=== PATIENT | male | born 1985 | race African-American/Black ===

== ENCOUNTER 2019-05-26 20:38 | Inpatient (IN) ==
[2019-05-26] MEDS ORDERED: DUONEB (A & A) INH ONE (21:26)
[2019-05-26] MEDS ORDERED: ALBUTEROL NEB INH ONE (21:26)
[2019-05-26] MEDS ORDERED: SOLU-MEDROL IV ONE (21:33)
--- NOTE | 2019-05-26 21:53 | Diag Imaging Result Doc PS360 ---
EXAM: CHEST-2 VIEWS - 05/26/2019 HISTORY: dyspnea TECHNIQUE: Chest two views COMPARISON: 05/24/2018 FINDINGS: There are substantial thoracic dextroscoliosis. Inspiration on the lateral view is shallow. There is substantial elevation of the left hemidiaphragm similar to prior. The lungs appear grossly clear. There is no substantial vascular congestion, pleural effusion, or pneumothorax identified. IMPRESSION: Substantial thoracic dextroscoliosis. Substantial elevation left hemidiaphragm similar to prior. No discrete evidence of acute disease. Electronically signed by Jc Styles 05/26/2019 9:50 PM
--- NOTE | 2019-05-26 22:15 | PROVIDER DOCUMENTATION ---
HPI-General Adult - General Chief Complaint: Shortness of Breath Stated Complaint: sob Time Seen by Provider: 05/26/19 20:54 Source: patient Allergies/Adverse Reactions: Patient Allergies Allergy/AdvReac Type Severity Reaction Status Date / Time No Known Allergies Allergy Verified 07/02/13 17:48 Home Medications: Home Medication List Medication Instructions Recorded Confirmed Last Taken Type Cetirizine HCl 10 mg PO HS 07/02/13 05/26/19 07/01/13 20:00 History Montelukast [Singulair] 10 mg PO QHS 07/02/13 05/26/19 07/01/13 20:00 History Olanzapine [Zyprexa] 2.5 mg PO BID 07/02/13 05/26/19 07/02/13 08:00 History Sertraline [Zoloft] 50 mg PO QHS 07/02/13 05/26/19 07/01/13 20:00 History Tramadol HCl 50 mg PO Q6H PRN PRN 07/02/13 05/26/19 07/02/13 08:00 History Cholecalciferol (Vit D3) [Vitamin 1 tab PO DAILY 05/26/19 05/26/19 Unknown History D3] Iron,Carbonyl/Ascorbic Acid [Fe C 1 tab PO TID 05/26/19 05/26/19 Unknown History Tablet] Mupirocin Ointment [Bactroban 1 dose TOP BID 05/26/19 05/26/19 Unknown History Ointment] Simvastatin 20 mg PO DAILY 05/26/19 05/26/19 Unknown History Ziprasidone HCl 20 mg PO BID 05/26/19 05/26/19 Unknown History Ziprasidone [Geodon] 20 mg PO BID 05/26/19 05/26/19 Unknown History - History of Present Illness -Gen Adult Nature of Presenting Problems: Patient with a h/o cerebral palsy, intellectual disability, Asthma, seizure, brought from the custodial, reports sudden onset of dyspnea around 5pm today with associated nausea. No chest pain, diaphoresis or vomiting. He has been sedentary due to extremity deformities Location of Pain/Injury: reports: other (sob) Pain Radiation: reports: no radiation Quality of Pain: reports: none Onset/Duration: reports: abrupt Timing: reports: still present Context/Activities at Onset: reports: none Modifying Factors: improves with: nothing Associated Symptoms: reports: nausea Review of Systems - Adult - REVIEW OF SYSTEMS - ADULT Constitutional: reports: no symptoms reported Eyes: reports: no symptoms reported Ears, Nose, Mouth & Throat: reports: no symptoms reported Cardiovascular: reports: see HPI Respiratory: reports: see HPI Gastrointestinal: reports: nausea Genitourinary: reports: no symptoms reported Musculoskeletal: reports: no symptoms reported Integumentary: reports: no symptoms reported Neurological: reports: no symptoms reported Psychiatric: reports: no symptoms reported Endocrine: reports: no symptoms reported Hematologic/Lymphatic: reports: no symptoms reported Allergic/Immunologic: reports: no symptoms reported Past History - Adult - PAST MEDICAL HISTORY-ADULT Review of Records: reports: Nursing Assessment Review, Medications Reviewed, Social history reviewed & non-contributory. Major Childhood Illnesses: reports: other (cerebral palsy) Cardiovascular: reports: hyperlipidemia Respiratory: reports: asthma Gastrointestinal: reports: denies history Genitourinary: reports: denies history Musculoskeletal: reports: other (extremities deformities) Neurological: reports: Seizures/Epilepsy Psychiatric: reports: other (mood disorder, intellectual disability) Endocrine/Immune: reports: denies history - FAMILY HISTORY Family History: reviewed, not pertinent - SOCIAL HISTORY Smoking: denies Substance Use: denies Alcohol Use Frequency: never Living Situation: care facility Physical Exam-General - PHYSICAL EXAM-ADULT Initial Vital Signs Reviewed: Yes - CONSTITUTIONAL General Appearance: alert - EYES Eyes: PERRL/EOMI - HEAD, EARS, NOSE, MOUTH & THROAT HENMT: normocephalic/atraumatic - NECK Neck: non-tender, full range of motion, supple - RESPIRATORY Respiratory: decreased breath sounds (and air entry), wheezing (left upper chest) - CARDIOVASCULAR Cardiovascular: regular rate, rhythm, no edema - GASTROINTESTINAL (ABDOMEN) Abdominal Exam: non tender, soft - MUSCULOSKELETAL Extremity: deformity (flexion b/l wrist and contracture of both lower extremities) - SKIN Integumentary: normal color - NEUROLOGIC Neurologic: hand weaver II-XII nml as tested - PSYCHIATRIC Psych/Mental Status: oriented x 3 Progress - PLAN OF CARE/RESULTS Progress/Plan/Lab Results: Vital Signs - 8 hr 05/26/19 21:11 05/26/19 22:04 Temperature 98.6 F Pulse Rate 132 H 130 H Respiratory Rate 36 H 35 H Blood Pressure 146/100 O2 Sat by Pulse Oximetry 98 96 Orders Category Date Time Status Saline Loc NOW Care 05/26/19 21:29 Active CHEST-2 VIEWS [RAD] Stat Exams 05/26/19 21:29 Completed BLOOD CULTURE [BLDCUL] Stat Lab 05/26/19 21:29 Uncollected CBC WITH DIFF [HEME] Stat Lab 05/26/19 21:29 Uncollected CK PROFILE [SP CHEM] Stat Lab 05/26/19 21:29 Uncollected COMPREHENSIVE METABOLIC PANEL [CHEM] Stat Lab 05/26/19 21:29 Uncollected D-DIMER [COAG] Stat Lab 05/26/19 21:32 Uncollected TROPONIN T Stat Lab 05/26/19 21:29 Uncollected Albuterol 2.5MG/Ipratrop 0.5MG [Duoneb (A & A)] Med 05/26/19 21:26 Discontinued 3 ml INH NOW ONE Albuterol [Albuterol Neb] Med 05/26/19 21:26 Discontinued 2.5 mg INH NOW ONE Methylprednisolone Sod Succ [Solu-Medrol] Med 05/26/19 21:33 Discontinued 125 mg IV NOW ONE Aerosol Treatments Routine Oth 05/26/19 21:31 Completed Aerosol Treatments Stat Oth 05/26/19 21:31 Completed Pulse Oximetry Stat Oth 05/26/19 21:29 Completed EKG [EKG] Stat Ther 05/26/19 21:29 Ordered Result Diagrams: 05/26/19 22:15 05/26/19 22:15 - REASSESSMENT Reassessment #1 Status: unchanged (Had duoneb and solumedrol, Reports mild improvement but still sob. Now having generalised wheezing. Awaiting albuterol neb. Nurse will call R. Therapist) Reassessment #2 Time Reassessed: 12:45 Status: unchanged (Seen 20mins ater albuterol neb, still in mild respiratory distress and wheezing based on lung exam. Still tarchycardia @ 121 to 128 same prior to neb treatment. Will order 10mg albuterol as continous neb over 1 hr.) Reassessment #3 Status: unchanged (Still has wheezing and tarchycardia inspite of continuous albuterol neb. Will admit) - EKG 1 Time of EKG reading by physician:: 21:58 EKG Read and Signed by:: Jaycee Allen Rate: 128 QRS: normal ST Wave: depressed - XRAY 1 XRAY Study: Chest ( EXAM: CHEST-2 VIEWS - 05/26/2019 HISTORY: dyspnea TECHNIQUE: Chest two views COMPARISON: 05/24/2018 FINDINGS: There are substantial thoracic dextroscoliosis. Inspiration on the lateral view is shallow. There is substantial elevation of the left hemidiaphragm similar to prior. The lungs appear grossly clear. There is no substantial vascular congestion, pleural effusion, or pneumothorax identified. IMPRESSION: Subs tantial thoracic dextroscoliosis. Substantial elevation left hemidiaphragm similar to prior. No discrete evidence of acute disease. Electronically signed by Jc Styles 05/26/2019 9:50 PM 05/26/192149 Interpreting Physician: Jc Styles MD Dictated Date/Time: 05/26/192146) - CONSULTS/PCP/HOSPITALIST Notification #1 *Consult/PCP/Hospitalist*: Dr Fournier Time Discussed: 02:18 Consult Disposition: Admit (Accepted admission) Departure - Departure Date of Disposition Decision: 05/27/19 Time of Disposition Decision: 02:19 DIAGNOSIS: Asthma exacerbation Disposition: STILL A PATIENT 30 Certified Medical Emergency: Emergent Condition: Fair - Critical Care Note This patient required my direct & personal management of CC.: No Attestation - Physician/ AIDEN Attestation Patient care was provided by Advanced Practice Provider:: No The physician spent face to face time with patient:: Yes Advanced Practice Provider documentation review:: Supervising physician onsite and consulted in the evaluation and care of this patient. The physician did have a face to face encounter with the patient.
[2019-05-26 22:38] LABS: BASO# 0.03 X1000 (0.0-0.2); BASO% 0.3 % (0.0-0.8); EOS# 0.06 X1000 (0.0-0.7); EOS% 0.6 % (0.0-10.0); HEMOGLOBIN 13.5 g/dL (14.0-18.0); IMM GRAN# 0.05 X1000 (0.0-0.04); IMM GRAN% 0.5 % (0.0-0.5); LYMPH% 13.1 % (20.5-51.1); MCH 28.5 PG (27-31); MCHC 30.7 g/dL (33-37); MONO# 0.87 X1000 (0.11-0.59); MONO% 8.1 % (1.7-9.3); MPV 9.7 FL (7.4-10.4); NEUT# 8.27 X1000 (1.4-6.5); NEUT% 77.4 % (42.2-75.2); PLT 297 X1000 (130-400); RBC 4.73 XMIL (4.7-6.1); RDW 13.5 % (11.5-14.5); WBC 10.68 X1000 (4.8-10.8)
[2019-05-26 23:01] LABS: AGAP 16; ALB/GLOB RATIO 1.5; ALBUMIN 5.1 g/dL (3.5-5.0); ALKALINE PHOSPHATASE 86 U/L (32-122); BUN 6 mg/dL (8-22); CALCIUM 9.9 mg/dL (8.8-10.2); CHLORIDE 97 mmol/L (98-107); COSMO 280; CREATININE 0.5 mg/dL (0.7-1.2); ESTIMATED GFR > 60; GLUCOSE 116 mg/dL (70-104); GOT 30 U/L (10-34); GPT 42 U/L (10-44); POTASSIUM 4.4 mmol/L (3.5-5.1); SODIUM 141 mmol/L (136-145); TCO2 28 mmol/L (25-35); TOTAL BILIRUBIN 0.22 mg/dL (0.20-1.00); TOTAL PROTEIN 8.5 g/dL (6.3-8.3)
[2019-05-26 23:19] LABS: CK PROFILE 343 U/L (24-204)
[2019-05-26 23:47] LABS: CK INDEX 0.6 (0.0-2.5); CK-MB 1.91 ng/mL (0.0-5.0)
--- NOTE | 2019-05-27 00:15 | EKG Report ---
Test Performed on : 05/26/2019 9:52:42 PM Test Reason : dyspnea Blood Pressure : / mmHG Vent. Rate : 128 BPM Atrial Rate : 131 BPM P-R Int : 144 ms QRS Dur : 088 ms QT Int : 404 ms P-R-T Axes : 062 076 012 degrees QTc Int : 589 ms Sinus tachycardia. Septal infarct , age undetermined T wave abnormality, consider inferior ischemia Abnormal ECG No previous ECGs available Unconfirmed Result
[2019-05-27] MEDS ORDERED: ALBUTEROL NEB INH ONE (00:42)
[2019-05-27] MEDS ORDERED: ULTRAM PO PRN (02:40)
[2019-05-27] MEDS: ROCEPHIN 1 GM in NS 50 ML IV SCH (04:45)
[2019-05-27] MEDS: NS 1,000 ML IV SCH ×2 (04:45→21:40)
[2019-05-27] MEDS: SOLU-MEDROL IV SCH ×3 (05:09→21:41)
[2019-05-27] MEDS: ALBUTEROL NEB INH SCH ×4 (06:05→22:36)
--- NOTE | 2019-05-27 06:15 | HISTORY AND PHYSICAL ---
CHIEF COMPLAINT: Shortness of breath. HISTORY OF PRESENT ILLNESS: Mr. Eckert is a 33-year-old male who has cerebral palsy. He is also known to have asthma or COPD. He has intellectual disability secondary to the cerebral palsy, previous seizures. He was brought in from the snf with sudden dyspnea around 5 p.m. last night. He had associated nausea. No chest pain, diaphoresis or vomiting. On exam, he was still having wheezing after several breathing treatments and was tachycardic. His chest x-ray was unremarkable. The patient appears to have had an asthma or COPD exacerbation. He will be admitted for further evaluation and treatment. PAST MEDICAL HISTORY: See HPI. PREVIOUS SURGICAL HISTORY: Denies. SOCIAL HISTORY: Lives at a snf. No alcohol, tobacco or illicit drugs. FAMILY HISTORY: Patient denies having any family history he is aware of. ALLERGIES: No known drug allergies. HOME MEDICATIONS: Geodon 20 mg p.o. b.i.d., cetirizine 10 mg p.o. at bedtime, vitamin D3 of 1000 units p.o. daily, iron with vitamin C 1 tablet p.o. t.i.d., Singulair 10 mg p.o. at bedtime, Bactroban topically, Zyprexa 2.5 mg p.o. b.i.d., sertraline 50 mg p.o. at bedtime, simvastatin 20 mg p.o. daily, Ultram 50 mg p.o. q.6 p.r.n. REVIEW OF SYSTEMS: Fourteen point review of systems conducted with the patient. He endorses shortness of breath and nausea. Denies other complaints. All other pertinent positives are listed above in the HPI. All other systems reviewed and negative. PHYSICAL EXAMINATION: VITAL SIGNS: Temperature 99.1, pulse 124, respirations 28, blood pressure 145/101, oxygen saturation 97% on 2 L nasal cannula. GENERAL: A 33-year-old male with cerebral palsy lying in the ER stretcher. He has contracted bilateral upper and lower extremities. He is alert and oriented times 3. He does not speak very much verbally. He is in no acute distress. HEENT: Head is atraumatic, normocephalic. Pupils equal, round, reactive to light. Extraocular eye movement is intact. Sclera is anicteric. Conjunctiva is pink. Oral mucosa is mildly dry. NECK: Short and thick. No JVD. No thyromegaly. Trachea is midline. No cervical lymphadenopathy. CARDIAC: S1, S2 appreciated. Tachycardic. No murmurs, gallops or rubs. LUNGS: Expiratory wheezing diminished bilaterally. No rhonchi or rales. Symmetric rise and fall with respirations. ABDOMEN: Soft, nondistended, nontender. Bowel sounds present all 4 quadrants, normoactive. EXTREMITIES: Bilateral upper and lower extremities are contracted. One-plus pedal pulses bilaterally. GENITOURINARY: No bladder distention. Patient voids. Otherwise deferred. NEUROLOGICAL: Patient has intellectual deficit. However, he is alert and oriented times 3. Patient is contractured but cranial nerves 2 through 12 otherwise seem grossly intact. DIAGNOSTIC DATA: Chest x-ray: Substantial elevation of the left hemidiaphragm. LABORATORY DATA: CBC within normal limits. D-dimer within normal limits. Chloride 97. BUN 6. Creatinine 0.5. Glucose 116. ASSESSMENT AND PLAN: 1. Asthma or chronic obstructive pulmonary disease exacerbation. Give steroids, DuoNebs and Rocephin 1 g. 2. Cerebral palsy with agitation at times. We will continue home medication. 3. Hyperglycemia. I am unaware of the patient having diabetes. Check hemoglobin A1c. 4. Hyperlipidemia. Continue statin. Further recommendations per patient clinical course. Dictated by LORI eCja for Mark Fournier MD I have performed a face to face diagnostic evaluation. Labs/Xrays- reviewed. Exam- Chest- scattered wheezes, CV- regular. A/P- Cerebral palsy, COPD exacerbation- Admit, duo nebs, empiric abx. Dr. Fournier cc: LORI Ceja MD [facility]
[2019-05-27 08:10] LABS: HEMOGLOBIN A1C 6.1 % (4.8-6.0)
[2019-05-27] MEDS: ZOCOR PO SCH (09:31)
[2019-05-27] MEDS: VITAMIN D PO SCH (09:31)
[2019-05-27] MEDS: ZYPREXA PO SCH ×2 (09:31→20:43)
[2019-05-27] MEDS: GEODON PO SCH ×2 (09:31→20:44)
[2019-05-27] MEDS: ICAR-C PO SCH ×3 (09:31→17:22)
[2019-05-27] MEDS: BACTROBAN OINTMENT TOP SCH ×2 (09:36→20:47)
--- NOTE | 2019-05-27 11:21 | Diag Imaging Result Doc PS360 ---
EXAM: CT THORAX W/O CONTRAST HISTORY: asp pna suspected TECHNIQUE: CT chest without contrast COMPARISON: None. FINDINGS: There is severe scoliosis. No pleural effusions. No cardiomegaly. No aortic aneurysm. There are small mediastinal nodes. There is a small amount of atelectasis in the lower lungs. The left hemidiaphragm is elevated. No consolidation. No bronchiectasis. IMPRESSION: There is atelectasis, but no definite pneumonia. This exam was performed using automated exposure control, adjustment of mA or kV according to patient size, and/or use of iterative reconstruction technique. Electronically signed by Misael Mckinley 05/27/2019 11:19 AM
[2019-05-27] MEDS: SINGULAIR PO SCH (20:44)
[2019-05-27] MEDS: ZYRTEC PO SCH (20:44)
[2019-05-27] MEDS: ZOLOFT PO SCH (20:44)
[2019-05-28] MEDS: NS 1,000 ML IV SCH ×2 (01:45→21:26)
[2019-05-28] MEDS: ALBUTEROL NEB INH SCH ×4 (03:46→23:14)
[2019-05-28] MEDS: ROCEPHIN 1 GM in NS 50 ML IV SCH (03:54)
[2019-05-28] MEDS: GEODON PO SCH ×2 (09:27→21:04)
[2019-05-28] MEDS: VITAMIN D PO SCH (09:27)
[2019-05-28] MEDS: ZOCOR PO SCH (09:27)
[2019-05-28] MEDS: ICAR-C PO SCH ×3 (09:27→17:33)
[2019-05-28] MEDS: ZYPREXA PO SCH ×2 (09:27→21:04)
[2019-05-28] MEDS: SOLU-MEDROL IV SCH ×2 (09:27→17:33)
[2019-05-28] MEDS: BACTROBAN OINTMENT TOP SCH (09:29)
[2019-05-28 09:37] LABS: BASO# 0.01 X1000 (0.0-0.2); BASO% 0.1 % (0.0-0.8); HEMATOCRIT 43.5 % (42.0-52.0); HEMOGLOBIN 13.2 g/dL (14.0-18.0); IMM GRAN# 0.04 X1000 (0.0-0.04); IMM GRAN% 0.6 % (0.0-0.5); LYMPH# 1.06 X1000 (1.2-3.4); LYMPH% 15.2 % (20.5-51.1); MCH 29.5 PG (27-31); MCHC 30.3 g/dL (33-37); MCV 97.1 FL (81-99); MONO# 0.99 X1000 (0.11-0.59); MONO% 14.2 % (1.7-9.3); MPV 9.7 FL (7.4-10.4); NEUT# 4.87 X1000 (1.4-6.5); NEUT% 69.9 % (42.2-75.2); PLT 285 X1000 (130-400); RBC 4.48 XMIL (4.7-6.1); RDW 13.8 % (11.5-14.5); WBC 6.97 X1000 (4.8-10.8)
[2019-05-28 10:02] LABS: AGAP 17; BUN 8 mg/dL (8-22); CALCIUM 9.4 mg/dL (8.8-10.2); CHLORIDE 99 mmol/L (98-107); COSMO 286; CREATININE 0.5 mg/dL (0.7-1.2); ESTIMATED GFR > 60; GLUCOSE 239 mg/dL (70-104); POTASSIUM 3.9 mmol/L (3.5-5.1); SODIUM 140 mmol/L (136-145); TCO2 24 mmol/L (25-35)
--- NOTE | 2019-05-28 10:22 | PROGRESS NOTE ---
DATE: 05/28/2019 SUBJECTIVE: Patient is starting tomorrow a detention. Staff reports that he is still coughing a lot. OBJECTIVE: Vital Signs: Temperature 98.4 degrees, heart rate 106, respiratory rate 18, blood pressure 153/92, O2 saturation 92% 4 L nasal cannula. General examination: This is a 33-year- old, male, with past medical history of cerebral palsy lying in bed, in no acute distress. Cardiovascular exam: S1, S2 heard. No murmurs, gallops, or rubs. Regular rate and rhythm. Respiratory exam: Coarse breath sounds. Expiratory wheezing noted all over both pulmonary bases. The patient is not using accessory muscles or having work of breathing. Abdomen: Soft. Nontender to palpation. Bowel sounds present. No organomegaly. Extremities: No clubbing, cyanosis or edema. Peripheral pulses present in both legs. Neurological exam: Patient is alert and oriented x3. Moves 4 extremities. LABORATORY DATA: Reviewed. ASSESSMENT AND PLAN: 1. Acute respiratory failure secondary to asthma exacerbation. At admission, patient had not been given any steroid, so will provide Solu-Medrol 40 mg intravenously every 8 hours and ceftriaxone as well. We will change frequency of breathing treatments from q. 6 hours to q. 4 hours and see how he does. 2. Cerebral palsy with agitation at times. Patient is stable. We will continue to monitor. 3. Hyperlipidemia. We will continue with statins. 4. Disposition: I think this patient is stable. He will definitely need at least two more days in the hospital. We will transfer this patient out of the PVC unit today. cc: Mumtaz Wills MD
[2019-05-28] MEDS: ZYRTEC PO SCH (21:04)
[2019-05-28] MEDS: ZOLOFT PO SCH (21:04)
[2019-05-28] MEDS: SINGULAIR PO SCH (21:05)
[2019-05-29] MEDS: SOLU-MEDROL IV SCH ×4 (01:33→23:02)
[2019-05-29] MEDS: BACTROBAN OINTMENT TOP SCH ×3 (01:34→23:02)
[2019-05-29] MEDS: ALBUTEROL NEB INH SCH ×4 (03:12→22:08)
[2019-05-29] MEDS: ROCEPHIN 1 GM in NS 50 ML IV SCH (03:43)
[2019-05-29 07:15] LABS: HEMATOCRIT 42.8 % (42.0-52.0); IMM GRAN# 0.03 X1000 (0.0-0.04); IMM GRAN% 0.4 % (0.0-0.5); LYMPH# 1.09 X1000 (1.2-3.4); LYMPH% 13.8 % (20.5-51.1); MCH 28.8 PG (27-31); MCHC 30.4 g/dL (33-37); MCV 94.9 FL (81-99); MONO# 0.56 X1000 (0.11-0.59); MONO% 7.1 % (1.7-9.3); MPV 9.5 FL (7.4-10.4); NEUT# 6.24 X1000 (1.4-6.5); NEUT% 78.7 % (42.2-75.2); PLT 310 X1000 (130-400); RBC 4.51 XMIL (4.7-6.1); RDW 13.7 % (11.5-14.5); WBC 7.92 X1000 (4.8-10.8)
[2019-05-29 07:41] LABS: AGAP 13; BUN 10 mg/dL (8-22); CALCIUM 9.4 mg/dL (8.8-10.2); CHLORIDE 101 mmol/L (98-107); COSMO 290; CREATININE 0.4 mg/dL (0.7-1.2); ESTIMATED GFR > 60; GLUCOSE 165 mg/dL (70-104); POTASSIUM 4.1 mmol/L (3.5-5.1); SODIUM 144 mmol/L (136-145); TCO2 30 mmol/L (25-35)
[2019-05-29] MEDS: ZYPREXA PO SCH ×2 (09:54→22:57)
[2019-05-29] MEDS: ZOCOR PO SCH (09:54)
[2019-05-29] MEDS: GEODON PO SCH ×2 (09:55→22:57)
[2019-05-29] MEDS: VITAMIN D PO SCH (09:55)
[2019-05-29] MEDS: ICAR-C PO SCH ×3 (09:55→16:31)
[2019-05-29] MEDS: NS 1,000 ML IV SCH (13:42)
--- NOTE | 2019-05-29 18:46 | PROGRESS NOTE ---
DATE: 05/29/2019 SUBJECTIVE: Patient has no major complaints. His breathing is stable. There is no custodial person at this time to ask how he is doing. OBJECTIVE: Vital Signs: Blood pressure 124/87, heart rate 85, respiratory rate 21, temperature 98.1 degrees, 100% on 4 L. Cardiovascular: Regular rate and rhythm. Pulmonary: He has occasional rhonchi and wheezing. GI: Soft, nontender, nondistended. Bowel sounds were positive. LABORATORY DATA: White count 7, hemoglobin and hematocrit 13 and 42, platelets of 310,000. Basic was normal. Chest x-ray was likely normal. PROBLEM LIST: 1. Asthma exacerbation. Will continue breathing treatments. He seems to be doing okay. 2. Cerebral palsy is stable currently on current medications. DISPOSITION: I think he is probably getting close to being transferred to the floor. Will continue to follow. cc: Morgan Watkins MD
[2019-05-29] MEDS: SINGULAIR PO SCH (22:57)
[2019-05-29] MEDS: ZYRTEC PO SCH (22:57)
[2019-05-29] MEDS: ZOLOFT PO SCH (22:57)
[2019-05-30] MEDS: ALBUTEROL NEB INH SCH ×3 (03:40→15:26)
[2019-05-30] MEDS: ROCEPHIN 1 GM in NS 50 ML IV SCH (04:12)
[2019-05-30 07:20] LABS: HEMATOCRIT 41.8 % (42.0-52.0); HEMOGLOBIN 12.8 g/dL (14.0-18.0); IMM GRAN# 0.02 X1000 (0.0-0.04); IMM GRAN% 0.2 % (0.0-0.5); LYMPH# 0.86 X1000 (1.2-3.4); MCHC 30.6 g/dL (33-37); MCV 94.6 FL (81-99); MONO# 0.79 X1000 (0.11-0.59); MONO% 9.2 % (1.7-9.3); MPV 9.4 FL (7.4-10.4); NEUT# 6.93 X1000 (1.4-6.5); NEUT% 80.6 % (42.2-75.2); PLT 315 X1000 (130-400); RBC 4.42 XMIL (4.7-6.1); RDW 13.4 % (11.5-14.5)
[2019-05-30 07:33] LABS: AGAP 8; BUN 10 mg/dL (8-22); CALCIUM 9.1 mg/dL (8.8-10.2); CHLORIDE 96 mmol/L (98-107); COSMO 276; CREATININE 0.4 mg/dL (0.7-1.2); ESTIMATED GFR > 60; GLUCOSE 150 mg/dL (70-104); POTASSIUM 3.8 mmol/L (3.5-5.1); SODIUM 137 mmol/L (136-145); TCO2 33 mmol/L (25-35)
[2019-05-30] MEDS: VITAMIN D PO SCH (09:58)
[2019-05-30] MEDS: GEODON PO SCH ×3 (09:58→21:56)
[2019-05-30] MEDS: ZOCOR PO SCH (09:58)
[2019-05-30] MEDS: ZYPREXA PO SCH ×2 (09:58→21:57)
[2019-05-30] MEDS: ICAR-C PO SCH ×3 (09:58→18:56)
[2019-05-30] MEDS: SOLU-MEDROL IV SCH ×2 (09:58→20:54)
[2019-05-30] MEDS: BACTROBAN OINTMENT TOP SCH ×2 (09:59→22:00)
[2019-05-30] MEDS ORDERED: NS NEB INH SCH (18:00)
--- NOTE | 2019-05-30 19:23 | PROGRESS NOTE ---
DATE: 05/30/2019 SUBJECTIVE: His breathing is better. I feel like the wheezing is better. OBJECTIVE: Vital signs: Blood pressure 149/97, heart rate went up to 128, a big jump, but it has done that before. We may need to drop him down his Xopenex, but his breathing looked better and he had less secretions noted in upper airway noise. Cardiovascular: Regular rate and rhythm. Pulmonary: No wheezes. GI: Soft, nontender, and nondistended. Bowel sounds were positive. LABORATORY DATA: White count is 8, hemoglobin and hematocrit 12 and 41, platelets of 315,000. Basic was normal. PROBLEM LIST: 1. Acute asthma exacerbation. Will continue breathing treatments. He is on a little bit of steroids. I do not think I am going to knock them down further. 2. Rocephin. 3. Intellectual impairment related to cerebral palsy. Seems to be stable. DISPOSITION: Anticipate probable discharge tomorrow, if stable. cc: Morgan Watkins MD
[2019-05-30] MEDS ORDERED: SOLU-MEDROL 0 MG in NS 100 ML IV ONE (19:41)
[2019-05-30] MEDS ORDERED: OFIRMEV 1000 MG/ISOTONIC SOLN 1,000 MG/100 ML BOTTLE IV ONE (19:46)
[2019-05-30 19:49] LABS: ALLEN TEST YES; BE 7.7 mmoll (-3.0-3.0); BLOOD TYPE ARTERIAL; HCO3-(ACT) 30.9 mmoll (20.0-26.0); METHB 1.4 % (0.0-1.5); O2(CT) 20.2 mL/dL (15.0-23.0); O2HB 96.7 % (95.0-99.0); PCO2(98.6) 49 mmHg (35-45); PO2(98.6) 361 mmHg (60-100); SAMPLE BLOOD; SAO2 99.8 % (95.0-100.0); THB 14.2 g/dL (11.5-17.4); pH(98.6) 7.44 (7.35-7.45)
[2019-05-30 19:50] LABS: MODALITY NRB
[2019-05-30] MEDS ORDERED: SOLU-MEDROL ONE (19:52)
[2019-05-30] MEDS ORDERED: BROVANA NEB INH ONE (20:08)
[2019-05-30] MEDS ORDERED: LASIX IV ONE ×2 (20:08→23:55)
--- NOTE | 2019-05-30 20:27 | Diag Imaging Result Doc PS360 ---
EXAM: CHEST-PORTABLE INDICATION: sob TECHNIQUE: One view COMPARISON: 05/26/2019 FINDINGS: Severe dextroscoliosis is again noted. There is stable chronic elevation of the left hemidiaphragm. The lungs are grossly clear. There is no discrete pleural fluid collection or pneumothorax. The cardiomediastinal silhouette and central vasculature are grossly unremarkable. IMPRESSION: Stable chest with no definite acute pathology by plain radiograph. Electronically signed by Alexis Carnes 05/30/2019 8:25 PM
[2019-05-30 21:26] LABS: ALLEN TEST YES; BE 7.4 mmoll (-3.0-3.0); BLOOD TYPE ARTERIAL; HCO3-(ACT) 30.7 mmoll (20.0-26.0); METHB 1.3 % (0.0-1.5); O2(CT) 19.6 mL/dL (15.0-23.0); O2HB 96.1 % (95.0-99.0); PCO2(98.6) 50 mmHg (35-45); PO2(98.6) 103 mmHg (60-100); SAMPLE BLOOD; THB 14.4 g/dL (11.5-17.4); pH(98.6) 7.43 (7.35-7.45)
[2019-05-30 21:29] LABS: MODALITY BI PAP
[2019-05-30] MEDS: XOPENEX NEB INH SCH (21:30)
[2019-05-30] MEDS: ATROVENT NEB INH SCH (21:30)
[2019-05-30] MEDS: SINGULAIR PO SCH (21:56)
[2019-05-30] MEDS: ZOLOFT PO SCH (21:57)
[2019-05-30] MEDS: ZYRTEC PO SCH (21:57)
[2019-05-30 21:58] LABS: URINE SOURCE CATH
[2019-05-30 22:28] LABS: BILIRUBIN URINE NEGATIVE (NEGATIVE); BLOOD URINE TRACE (NEGATIVE); COLOR YELLOW; GLUCOSE URINE NEGATIVE (NEGATIVE); KETONE URINE NEGATIVE (NEGATIVE); LEUKOCYTES URINE NEGATIVE (NEGATIVE); NITRITE URINE NEGATIVE (NEGATIVE); PROTEIN URINE NEGATIVE (NEGATIVE); SP GRAVITY URINE 1.016; TURBIDITY URINE HAZY (CLEAR); UROBILINOGEN URINE NORMAL (NORMAL)
[2019-05-30 22:29] LABS: UR EPITHELIAL CELLS >10 /HPF (<10); URINE BACTERIA NEGATIVE /HPF; URINE RBC <10 /HPF (<10); URINE WBC <10 /HPF (<10)
[2019-05-30 22:38] LABS: URINE CRYSTALS NONE SEEN; URINE SMALL ROUND CELLS NONE SEEN; URINE YEAST NONE SEEN
[2019-05-30 22:39] LABS: URINE CASTS WHITE CELL PRESENT
[2019-05-31] MEDS: SOLU-MEDROL IV SCH ×4 (01:15→20:13)
[2019-05-31] MEDS: BROVANA NEB INH SCH ×3 (03:23→22:55)
[2019-05-31] MEDS: ATROVENT NEB INH SCH ×4 (03:25→22:55)
[2019-05-31] MEDS: ROCEPHIN 1 GM in NS 50 ML IV SCH (03:59)
--- NOTE | 2019-05-31 07:47 | PULMONOLOGY CONSULTATION ---
DATE: 05/30/2019 REQUESTING CLINICIAN: Dr. Watkins. REASON FOR CONSULTATION: Intubation (patient is not intubated). HISTORY OF PRESENT ILLNESS: Mr. Eckert is a 33-year-old black male with a history of cerebral palsy, intellectual limitations, seizures, and asthma, who was brought to the emergency room with increasing shortness of breath. The patient is a poor historian. He reports he has had asthma for "a long time". alf medicines not available for review. His medicines from recent pharmacies reveal Singulair, Zyprexa, Zoloft, simvastatin, Geodon, and tramadol. No asthma medicines are listed. The patient does not know why he came to the hospital. PAST MEDICAL HISTORY: 1. Cerebral palsy with intellectual disability. 2. Multiple contractions. 3. Severe kyphoscoliosis (one echocardiogram suggests dextrocardia). 4. Asthma. 5. Seizure disorder. SOCIAL HISTORY: He lives in a senior living. No alcohol or tobacco use listed. FAMILY HISTORY: Not available. REVIEW OF SYSTEMS: As noted in the HPI. PHYSICAL EXAMINATION: General: Reveals a bed-bound, chronically ill-appearing male with mild work of breathing. Blood pressure 148/98, heart rate 92, respiratory rate 28, oxygen saturation 100%. HEENT: Pupils are equal and reactive. Oropharynx is clear. Neck: Supple. Chest: Reveals diffuse wheezing bilaterally. Cardiac: S1, S2. Abdomen: Soft. Extremities: Contracted with chronic muscle loss and edema. IMAGING: CT scan of the thorax reveals severe scoliosis with a small amount of atelectasis in the lung bases and elevation of the left hemidiaphragm. LABORATORY DATA: White blood count 8.6, hemoglobin 12.8, platelet count 315,000. Arterial blood gas reveals a pH of 7.43, pCO2 of 50, PO2 of 103 on BiPAP with a normal lactate. IMPRESSION: A 33-year-old with: 1. Acute hypoxemic respiratory failure. 2. Asthma exacerbation. 3. Chronic hypercapnic respiratory failure. 4. Severe scoliosis likely leading to hypercapnic respiratory failure. 5. Fevers. RECOMMENDATIONS: 1. Agree with transfer to the ICU. 2. Attempt BiPAP. 3. Continue current antibiotic and steroid regimen. 4. Small diuretic trial. cc: Shantanu Rushing MD
[2019-05-31] MEDS: VITAMIN D PO SCH (08:45)
[2019-05-31] MEDS: GEODON PO SCH ×3 (08:45→20:13)
[2019-05-31] MEDS: ZOCOR PO SCH (08:45)
[2019-05-31] MEDS: ZYPREXA PO SCH ×2 (08:45→20:13)
[2019-05-31] MEDS: ICAR-C PO SCH ×3 (08:45→16:26)
[2019-05-31] MEDS: BACTROBAN OINTMENT TOP SCH ×2 (09:24→20:14)
[2019-05-31 09:40] LABS: ALLEN TEST YES; BLOOD TYPE ARTERIAL; HCO3-(ACT) 34.2 mmoll (20.0-26.0); METHB 1.1 % (0.0-1.5); O2(CT) 19.3 mL/dL (15.0-23.0); O2HB 95.3 % (95.0-99.0); PCO2(98.6) 49 mmHg (35-45); PO2(98.6) 83 mmHg (60-100); SAMPLE BLOOD; SAO2 98.1 % (95.0-100.0); THB 14.4 g/dL (11.5-17.4); pH(98.6) 7.49 (7.35-7.45)
[2019-05-31 09:43] LABS: MODALITY CANNULA
--- NOTE | 2019-05-31 09:49 | Diag Imaging Result Doc PS360 ---
EXAM: CHEST-PORTABLE 05/31/2019 HISTORY: resp failure TECHNIQUE: AP portable supine at 0936 COMMENT: There is a large hiatal hernia. There is marked rotoscoliosis of the thoracolumbar spine with convexity to the right. Overall the appearance of the chest has not changed significantly since 05/30/2019. IMPRESSION: Stable chest. Electronically signed by Devan Kelly 05/31/2019 9:47 AM
[2019-05-31 10:21] LABS: BASO# 0.01 X1000 (0.0-0.2); BASO% 0.1 % (0.0-0.8); HEMATOCRIT 44.4 % (42.0-52.0); HEMOGLOBIN 13.7 g/dL (14.0-18.0); IMM GRAN# 0.07 X1000 (0.0-0.04); IMM GRAN% 0.7 % (0.0-0.5); LYMPH# 1.02 X1000 (1.2-3.4); LYMPH% 10.5 % (20.5-51.1); MCH 28.7 PG (27-31); MCHC 30.9 g/dL (33-37); MCV 93.1 FL (81-99); MONO# 0.58 X1000 (0.11-0.59); MPV 9.7 FL (7.4-10.4); NEUT# 8.04 X1000 (1.4-6.5); NEUT% 82.7 % (42.2-75.2); PLT 339 X1000 (130-400); RBC 4.77 XMIL (4.7-6.1); RDW 13.6 % (11.5-14.5); WBC 9.72 X1000 (4.8-10.8)
[2019-05-31 10:32] LABS: AGAP 16; ALB/GLOB RATIO 1.1; ALBUMIN 4.3 g/dL (3.5-5.0); ALKALINE PHOSPHATASE 65 U/L (32-122); BUN 14 mg/dL (8-22); CALCIUM 9.3 mg/dL (8.8-10.2); CHLORIDE 94 mmol/L (98-107); COSMO 291; CREATININE 0.6 mg/dL (0.7-1.2); ESTIMATED GFR > 60; GLUCOSE 200 mg/dL (70-104); GOT 17 U/L (10-34); GPT 26 U/L (10-44); MAGNESIUM 2.4 mg/dL (1.5-2.7); POTASSIUM 3.4 mmol/L (3.5-5.1); SODIUM 143 mmol/L (136-145); TCO2 33 mmol/L (25-35); TOTAL BILIRUBIN 0.27 mg/dL (0.20-1.00); TOTAL PROTEIN 8.1 g/dL (6.3-8.3)
[2019-05-31] MEDS: XOPENEX NEB INH SCH ×3 (11:31→22:55)
--- NOTE | 2019-05-31 11:57 | PROGRESS NOTE ---
DATE: 05/31/2019 SUBJECTIVE: Patient is nonverbal. Apparently, he is breathing better. He was transferred to the intensive care unit overnight for shortness of breath. Apparently, they were thinking that this patient may need to be intubated. According to nursing staff, he has been fed this morning. He has been on BiPAP on now requiring 3 L of oxygen by nasal cannula. OBJECTIVE: Vital Signs: Temperature 99.3, heart rate 90, respiratory rate 22, blood pressure 153/112, O2 saturation 98% on 3 L nasal cannula. General Examination: This is a chronically ill- appearing, 33-year-old, male with a history of cerebral palsy, lying in bed, in no acute distress. Cardiovascular Examination: S1 and S2 heard. No murmurs, gallops, or rubs. Regular rate and rhythm. Respiratory Examination: Coarse breath sounds all over both pulmonary bases, anteriorly as well. The patient is not using any accessory muscles or having work of breathing. Abdomen: Soft, nontender to palpation, nondistended. Bowel sounds present. No organomegaly. Extremities: Flexed, all 4 extremities. Neurological Examination: The patient is nonverbal. Awake. Does not follow commands. Laboratory Data: White cell count 8.6, hemoglobin 12.8, hematocrit 41.8, platelets 315,000. ABG shows pH 7.43, with pCO2 of 50, PO2 of 103. Normal BMP. ASSESSMENT AND PLAN: 1. Acute respiratory failure secondary to asthma exacerbation. We will continue with breathing treatments, intravenous steroids. He has been on ceftriaxone since admission. We will continue with the same management. 2. Volume overload. That is the reason why this patient was transferred to the intensive care unit. He has received, so far, Lasix 80 mg intravenously. We will continue with the same management. 3. Intellectually impairment related to cerebral palsy, stable. We will continue to monitor. 4. Hyperlipidemia. We will continue with the statin. 5. Disposition. At this point, we will keep the patient in the intensive care unit to monitor him closely. If tomorrow he is fine, we will send him to a regular floor. cc: Mumtaz Wills MD
[2019-05-31] MEDS: TAMIFLU PO SCH ×2 (14:17→20:13)
[2019-05-31] MEDS: ZOLOFT PO SCH (20:13)
[2019-05-31] MEDS: SINGULAIR PO SCH (20:13)
[2019-05-31] MEDS: ZYRTEC PO SCH (20:13)
[2019-06-01] MEDS: SOLU-MEDROL IV SCH ×4 (02:03→20:31)
[2019-06-01] MEDS: ATROVENT NEB INH SCH ×4 (03:26→21:19)
[2019-06-01] MEDS: ROCEPHIN 1 GM in NS 50 ML IV SCH (03:47)
--- NOTE | 2019-06-01 04:28 | PULMONOLOGY PROGRESS NOTE ---
DATE: 05/31/2019 SUBJECTIVE: The patient is arousable to alert. He appears to be comfortable on BiPAP. OBJECTIVE: Maximum temperature in the last 24 hours is 101.2 degrees, blood pressure 131/83, heart rate 103, respiratory rate 32, and oxygen saturation 97% on BiPAP.HEENT: Pupils are equal and reactive. Oropharynx appears clear. Neck: Supple. Lungs: Chest exam reveals diffuse wheezing bilaterally. Cardiac: S1-S2. Abdomen is soft and obese. Extremities: Reveal trace to 1+ edema. LABORATORIES: Influenza screen has returned positive for influenza B. Arterial blood gas reveals pH 7.49, pCO2 of 49, PO2 of 83 with a lactate of 4.3. White blood count 9.72, hemoglobin 13.4, and platelet count 339,000. Chest x-ray reveals large hiatal hernia without change. IMPRESSION: A 33-year-old with: 1. Influenza B. 2. Acute hypoxemic respiratory failure. 3. Asthma exacerbation. 4. Chronic hypercapnic respiratory failure. 5. Severe scoliosis. 6. Fevers. RECOMMENDATIONS: 1. Initiate Tamiflu 75 mg b.i.d. for the next 5 days. 2. Initiate isolation. 3. Continue BiPAP. 4. Consider weaning antibiotics soon given the positive influenza screen. 5. Continue ICU monitoring. He remains critically ill given his limited ventilatory ability associated with his obesity and kyphoscoliosis. cc: Shantanu Rushing MD
[2019-06-01] MEDS: BROVANA NEB INH SCH ×2 (08:59→21:20)
[2019-06-01] MEDS: XOPENEX NEB INH SCH ×3 (08:59→21:20)
[2019-06-01] MEDS: ZYPREXA PO SCH ×2 (09:56→20:32)
[2019-06-01] MEDS: ICAR-C PO SCH ×3 (09:56→17:38)
[2019-06-01] MEDS: ZOCOR PO SCH (09:56)
[2019-06-01] MEDS: BACTROBAN OINTMENT TOP SCH ×2 (09:57→20:37)
[2019-06-01] MEDS: GEODON PO SCH ×2 (09:57→20:31)
[2019-06-01] MEDS: VITAMIN D PO SCH (09:57)
[2019-06-01] MEDS: TAMIFLU PO SCH ×2 (09:57→20:32)
--- NOTE | 2019-06-01 12:40 | PROGRESS NOTE ---
DATE: 06/01/2019 SUBJECTIVE: Patient is nonverbal. He is requiring now a BiPAP mask. OBJECTIVE: Vital Signs: Temperature 97.6 degrees, heart rate 75, respiratory rate 26, blood pressure 133/86, O2 saturation 93% on BiPAP mask. General examination: This is a chronically ill- appearing, 33-year-old, male with history of seropositive, lying in bed, in no acute distress. Cardiovascular: S1, S2 heard. No murmurs, gallops, or rubs. Regular rate and rhythm. Respiratory: Coarse breath sounds noted all over both pulmonary perry. Patient is not using any accessory muscles or having work of breathing. Abdomen: Soft. Apparently nontender to palpation. Nondistended. Bowel sounds present. No organomegaly. Extremities: All flexed 4 extremities. Neurological: Patient is nonverbal, awake. Does not follow commands. LABORATORY DATA: There are no labs from today. ASSESSMENT AND PLAN: 1. Acute respiratory failure secondary to asthma exacerbation secondary to flu. We have isolated influenza B so the patient has been started on Tamiflu. We will continue with IV steroids but will reduce the doses. I do not think this patient needs to be on ceftriaxone and we are going to stop it. We will continue to monitor this patient closely here in the intensive care unit, not only because of the asthma exacerbation but because of his limited ventilatory ability associated with his obesity and kyphoscoliosis as Pulmonary noted. 2. Volume overload. The patient has received 1 dose of Lasix. The x-ray from this morning showed stable chest. We will continue to monitor. We will repeat an x-ray tomorrow. 3. Intellectual impairment related to cerebral palsy. Stable. We will continue to monitor. 4. Hyperlipidemia. We will continue with statin. 5. Disposition. We will continue to monitor this patient here in the intensive care unit. Pulmonary following this patient. We will follow recommendations. cc: Mumtaz Wills MD MTDInder
[2019-06-01] MEDS: ZYRTEC PO SCH (20:31)
[2019-06-01] MEDS: SINGULAIR PO SCH (20:31)
[2019-06-01] MEDS: ZOLOFT PO SCH (20:32)
[2019-06-02] MEDS: ATROVENT NEB INH SCH ×4 (03:17→21:45)
[2019-06-02] MEDS: SOLU-MEDROL IV SCH ×4 (04:41→20:32)
[2019-06-02 06:04] LABS: BASO# 0.01 X1000 (0.0-0.2); BASO% 0.1 % (0.0-0.8); HEMATOCRIT 41.3 % (42.0-52.0); HEMOGLOBIN 12.7 g/dL (14.0-18.0); IMM GRAN# 0.06 X1000 (0.0-0.04); IMM GRAN% 0.7 % (0.0-0.5); LYMPH# 1.14 X1000 (1.2-3.4); MCH 28.7 PG (27-31); MCHC 30.8 g/dL (33-37); MCV 93.2 FL (81-99); MONO# 0.76 X1000 (0.11-0.59); MONO% 8.6 % (1.7-9.3); MPV 9.4 FL (7.4-10.4); NEUT# 6.82 X1000 (1.4-6.5); NEUT% 77.6 % (42.2-75.2); PLT 317 X1000 (130-400); RBC 4.43 XMIL (4.7-6.1); RDW 13.1 % (11.5-14.5); WBC 8.79 X1000 (4.8-10.8)
[2019-06-02 06:33] LABS: AGAP 12; BUN 13 mg/dL (8-22); CHLORIDE 96 mmol/L (98-107); COSMO 285; CREATININE 0.4 mg/dL (0.7-1.2); ESTIMATED GFR > 60; GLUCOSE 165 mg/dL (70-104); POTASSIUM 3.7 mmol/L (3.5-5.1); SODIUM 141 mmol/L (136-145); TCO2 33 mmol/L (25-35)
[2019-06-02] MEDS: ZOCOR PO SCH (08:04)
[2019-06-02] MEDS: TAMIFLU PO SCH ×2 (08:05→20:24)
[2019-06-02] MEDS: ZYPREXA PO SCH ×2 (08:05→20:24)
[2019-06-02] MEDS: VITAMIN D PO SCH (08:05)
[2019-06-02] MEDS: BACTROBAN OINTMENT TOP SCH ×2 (08:05→20:33)
[2019-06-02] MEDS: ICAR-C PO SCH ×3 (08:05→17:04)
[2019-06-02] MEDS: GEODON PO SCH ×2 (08:05→20:24)
--- NOTE | 2019-06-02 11:18 | PROGRESS NOTE ---
DATE: 06/02/2019 SUBJECTIVE: Mr. Eckert is a 33-year-old who is admitted on 05/27/2019. He was admitted with asthma, COPD, intellectually disabled secondary to cerebral palsy, previous seizures, [facility] with sudden dyspnea around 5 p.m. the night of admission, associated with nausea. No chest pain, diaphoresis, or vomiting. He was admitted with asthma, obstructive pulmonary disease exacerbation. Started on steroids, DuoNeb and Rocephin. He has underlying cerebral palsy with agitation at times, hyperglycemia and hyperlipidemia. PHYSICAL EXAMINATION: Vital signs: Today, remains afebrile, temperature 97.7 degrees, pulse 93, respirations 29, blood pressure 135/95. HEENT: Pupils are equal and round. Lungs: Clear in all lung perry. Cardiovascular: Regular rhythm and rate without murmur or S3. Abdomen: Soft. Skin: Warm and dry. Urine output: 1600 mL. ASSESSMENT AND PLAN: 1. Acute respiratory failure due to asthma exacerbation secondary to flu, isolated influenza B. The patient started on Tamiflu. Continue IV steroids and he is on ceftriaxone. I think that is going to be stopped soon or has been stopped. 2. Volume overload, diuresing with Lasix. 3. Intellectual impairment secondary to cerebral palsy. 4. Hyperlipidemia. 5. Diabetes mellitus,following his sugar. REVIEW OF HIS ORDERS: He is on Singulair 10 mg at bedtime, Zoloft 50 mg at bedtime, Zyrtec 10 mg at bedtime, vitamin D3, 1000 units p.o. daily, iron carbonyl 1 three times a day, methylprednisone 40 mg IV q.6, Zyprexa 2.5 mg b.i.d., Tamiflu 75 mg b.i.d., Zocor 20 mg a day, Ultram 50 mg p.o. q.6 hours, Geodon 20 mg p.o. b.i.d. LABORATORY DATA: From today, white count 8790, hematocrit is 41, hemoglobin 12, platelet count 317,000. Chemistry: Sodium 141, potassium 3.7, chloride 96, BUN 13, creatinine 0.4. Blood sugars 182, 200, 209, 165. cc: MD JARAD Rizzo
[2019-06-02] MEDS: XOPENEX NEB INH SCH ×3 (11:22→21:45)
[2019-06-02] MEDS: BROVANA NEB INH SCH ×2 (11:22→21:45)
[2019-06-02] MEDS: MUCOMYST 20% INH SCH ×2 (15:29→21:45)
[2019-06-02] MEDS: ZYRTEC PO SCH (20:24)
[2019-06-02] MEDS: ZOLOFT PO SCH (20:24)
[2019-06-02] MEDS: SINGULAIR PO SCH (20:24)
[2019-06-03] MEDS: SOLU-MEDROL IV SCH ×4 (03:06→22:07)
[2019-06-03] MEDS: ATROVENT NEB INH SCH ×4 (03:11→21:04)
[2019-06-03 05:05] LABS: AGAP 13; BASO# 0.03 X1000 (0.0-0.2); BASO% 0.3 % (0.0-0.8); BUN 11 mg/dL (8-22); CALCIUM 8.8 mg/dL (8.8-10.2); CHLORIDE 96 mmol/L (98-107); COSMO 285; CREATININE 0.4 mg/dL (0.7-1.2); EOS# 0.28 X1000 (0.0-0.7); ESTIMATED GFR > 60; GLUCOSE 212 mg/dL (70-104); HEMOGLOBIN 13.2 g/dL (14.0-18.0); IMM GRAN# 0.13 X1000 (0.0-0.04); IMM GRAN% 1.4 % (0.0-0.5); LYMPH# 1.02 X1000 (1.2-3.4); LYMPH% 10.8 % (20.5-51.1); MCH 29.8 PG (27-31); MCHC 31.4 g/dL (33-37); MCV 94.8 FL (81-99); MONO# 0.52 X1000 (0.11-0.59); MONO% 5.5 % (1.7-9.3); MPV 10.4 FL (7.4-10.4); NEUT# 7.44 X1000 (1.4-6.5); PLT 244 X1000 (130-400); RBC 4.43 XMIL (4.7-6.1); RDW 13.2 % (11.5-14.5); SODIUM 140 mmol/L (136-145); TCO2 31 mmol/L (25-35); WBC 9.42 X1000 (4.8-10.8)
--- NOTE | 2019-06-03 08:02 | PROGRESS NOTE ---
DATE: 06/03/2019 SUBJECTIVE: Mr. Eckert appears to be breathing comfortably and feeling better. OBJECTIVE: Vital Signs: He remains afebrile, temperature 98.6 degrees, pulse 70, respirations 20, blood pressure 105/72. HEENT: Pupils are equal and round. Lungs: Clear in all lung perry. Cardiovascular: Regular rhythm and rate without murmur or S3. Abdomen: Soft. Skin: Warm and dry. Urine output is 1200 mL. ASSESSMENT AND PLAN: 1. Acute respiratory failure due to asthma exacerbation secondary to the flu, isolated influenza B. The patient was started on Tamiflu, getting intravenous steroids, and ceftriaxone. 2. Volume overload, diuresing with Lasix. 3. Intellectual impairment secondary to cerebral palsy. 4. Hyperlipidemia. 5. Diabetes mellitus type 2. Continue to follow sugars. REVIEW OF LAB: I do not see any change at this point. He is getting Tamiflu 75 mg p.o. b.i.d., and we have stopped his ceftriaxone. LABORATORY DATA: Today, white count 9420, hematocrit is 42, platelet count 244,000. Sodium 140, potassium 4.0, chloride 96, BUN 11, creatinine 0.4. Blood sugars 200, 209, 165, 212. cc: Gera Weaver MD
[2019-06-03] MEDS: BACTROBAN OINTMENT TOP SCH ×2 (08:44→22:10)
[2019-06-03] MEDS: ICAR-C PO SCH ×3 (08:45→17:38)
[2019-06-03] MEDS: VITAMIN D PO SCH (08:45)
[2019-06-03] MEDS: GEODON PO SCH ×2 (08:46→22:07)
[2019-06-03] MEDS: TAMIFLU PO SCH ×2 (08:46→22:07)
[2019-06-03] MEDS: ZOCOR PO SCH (08:46)
[2019-06-03] MEDS: ZYPREXA PO SCH ×2 (08:46→22:07)
[2019-06-03] MEDS: BROVANA NEB INH SCH ×2 (11:15→21:04)
[2019-06-03] MEDS: MUCOMYST 20% INH SCH ×2 (11:39→21:04)
[2019-06-03] MEDS: XOPENEX NEB INH SCH ×3 (11:39→21:03)
[2019-06-03] MEDS: ZOLOFT PO SCH (22:07)
[2019-06-03] MEDS: ZYRTEC PO SCH (22:07)
[2019-06-03] MEDS: SINGULAIR PO SCH (22:07)
[2019-06-04] MEDS: SOLU-MEDROL IV SCH ×4 (02:36→22:14)
[2019-06-04] MEDS: ATROVENT NEB INH SCH ×4 (03:05→23:22)
[2019-06-04 06:11] LABS: BASO# 0.02 X1000 (0.0-0.2); BASO% 0.2 % (0.0-0.8); EOS# 0.02 X1000 (0.0-0.7); EOS% 0.2 % (0.0-10.0); HEMATOCRIT 41.6 % (42.0-52.0); HEMOGLOBIN 13.1 g/dL (14.0-18.0); IMM GRAN# 0.16 X1000 (0.0-0.04); IMM GRAN% 1.8 % (0.0-0.5); LYMPH# 0.93 X1000 (1.2-3.4); LYMPH% 10.2 % (20.5-51.1); MCH 29.4 PG (27-31); MCHC 31.5 g/dL (33-37); MCV 93.3 FL (81-99); MONO# 0.46 X1000 (0.11-0.59); MPV 9.4 FL (7.4-10.4); NEUT# 7.52 X1000 (1.4-6.5); NEUT% 82.6 % (42.2-75.2); PLT 343 X1000 (130-400); RBC 4.46 XMIL (4.7-6.1); WBC 9.11 X1000 (4.8-10.8)
[2019-06-04 06:17] LABS: AGAP 13; BUN 13 mg/dL (8-22); CALCIUM 8.9 mg/dL (8.8-10.2); CHLORIDE 93 mmol/L (98-107); COSMO 284; CREATININE 0.5 mg/dL (0.7-1.2); ESTIMATED GFR > 60; GLUCOSE 212 mg/dL (70-104); POTASSIUM 4.2 mmol/L (3.5-5.1); SODIUM 139 mmol/L (136-145); TCO2 33 mmol/L (25-35)
--- NOTE | 2019-06-04 07:13 | Diag Imaging Result Doc PS360 ---
EXAM: CHEST-1 VIEW 06/04/2019 HISTORY: SOB TECHNIQUE: AP portable supine at 0540 COMMENT: There is left ventricular enlargement. There is some hazy opacity of the right base which is worse than on 05/31/2019. This may be due to pulmonary edema or pneumonia. There is severe rotoscoliosis of the thoracolumbar spine with convexity to the right distorting the chest. IMPRESSION: Pulmonary edema. Electronically signed by Devan Kelly 06/04/2019 7:11 AM
[2019-06-04] MEDS ORDERED: BROVANA NEB ONE ×2 (07:49)
[2019-06-04] MEDS: ICAR-C PO SCH ×3 (08:43→22:13)
[2019-06-04] MEDS: GEODON PO SCH ×2 (08:43→22:13)
[2019-06-04] MEDS: TAMIFLU PO SCH ×2 (08:43→22:13)
[2019-06-04] MEDS: ZOCOR PO SCH (08:43)
[2019-06-04] MEDS: VITAMIN D PO SCH (08:43)
[2019-06-04] MEDS: ZYPREXA PO SCH ×2 (08:44→22:13)
[2019-06-04] MEDS: BACTROBAN OINTMENT TOP SCH ×2 (08:44→22:14)
[2019-06-04] MEDS: BROVANA NEB INH SCH ×2 (10:36→23:22)
[2019-06-04] MEDS: MUCOMYST 20% INH SCH ×2 (10:37→23:22)
[2019-06-04] MEDS: XOPENEX NEB INH SCH ×3 (10:37→23:22)
--- NOTE | 2019-06-04 12:55 | PROGRESS NOTE ---
DATE: 06/04/2019 SUBJECTIVE: Mr. Eckert is doing better. It looks like he is comfortable, breathing comfortably. Still on nasal cannula. He remains afebrile. OBJECTIVE: Temperature 98.3 degrees, pulse 90, respirations 20, blood pressure 117/68. Pupils are equal and round. Lungs are clear in all lung prery. Cardiovascular Examination: Regular rhythm and rate without murmur or S3. Urine output was 1900 mL. His chest x-ray showed some pulmonary edema, left ventricular enlargement, hazy opacity in the right base which was worse than 05/31/2019 and this is probably pulmonary edema, severe retro- scoliosis of the thoracolumbar spine with convexity to the right, distorting the chest. ASSESSMENT AND PLAN: 1. Acute respiratory failure due to asthma exacerbation secondary to influenza, isolated influenza B. He is on Tamiflu, getting intravenous steroids. I think we stopped the ceftriaxone. 2. Volume overload. Continue to diuresis with Lasix. 3. Intellectual impairment secondary to cerebral palsy. 4. Hyperlipidemia. 5. Diabetes mellitus type 2. Sugars appear to be under good control. 6. He remains afebrile. Clinically, he is improving. See if we can decrease his supplementary oxygen. REVIEW OF HIS ORDERS: He is on Singulair 10 mg at bedtime, Zoloft 50 mg p.o. at bedtime, arformoterol nebulizer 15 mcg inhaler and he gets this q.12 hours, Zyrtec 10 mg at bedtime, vitamin D3 with 1000 units p.o. daily, ipratropium bromide 0.5 mg q.6 hours, iron/carbonyl/ascorbic acid 1 t.i.d., Xopenex 1.25 mg q.6 hours, Zyprexa 2.5 mg p.o. b.i.d., Tamiflu 75 mg b.i.d., Zocor 20 mg a day, Geodon 20 mg p.o. b.i.d. It looks like we are making progress. Hopefully, we can continue to get some fluid off of him. Note, his creatinine is 0.5. I am going to give him a dose of IV Lasix today and continue to try to wean off the oxygen. cc: Gera Weaver MD
[2019-06-04] MEDS: LASIX IV SCH (15:17)
[2019-06-04] MEDS: ZYRTEC PO SCH (22:13)
[2019-06-04] MEDS: ZOLOFT PO SCH (22:13)
[2019-06-04] MEDS: SINGULAIR PO SCH (22:13)
[2019-06-05] MEDS: SOLU-MEDROL IV SCH ×4 (02:50→20:35)
[2019-06-05] MEDS: ATROVENT NEB INH SCH ×4 (03:34→21:38)
--- NOTE | 2019-06-05 07:19 | PULMONOLOGY PROGRESS NOTE ---
DATE: 06/04/2019 SUBJECTIVE: The patient is awake and alert. He has mild work of breathing, which has diminished since the last time I evaluated him last night. OBJECTIVE: Vital Signs: The patient has been afebrile for the last 24 hours. Blood pressure 129/84, heart rate 93, respiratory rate 19, and oxygen saturation 93% on 3 L per nasal cannula HEENT: Pupils are equal and reactive. Oropharynx appears clear. Neck: Supple. Lungs: Chest reveals mild accessory muscle use. Faint wheezing but improved air flow. Cardiac: S1-S2. Abdomen: Soft. Extremities: Reveal trace edema. LABORATORIES: White blood count 9.11, hemoglobin 13.1, and platelet count 343,000. Sodium 139, potassium 4.2, chloride 93, bicarbonate 33, BUN 13, and creatinine 0.5. Chest x-ray reveals severe rotoscoliosis with mild vascular congestion and probable elevation of the hemidiaphragm on the right. IMPRESSION: A 33-year-old with: 1. Influenza B. 2. Asthma exacerbation. 3. Acute hypoxemic respiratory failure. 4. Chronic hypercapnic respiratory failure. 5. Severe scoliosis leading to chronic hypercapnic respiratory failure. PLAN: 1. Complete Tamiflu. 2. Agree with discontinuing isolation. 3. BiPAP at bedtime and p.r.n. 4. Agree with discontinuing antibiotics. 5. Anticipate discharge soon if he continues to improve. cc: Shantanu Rushing MD
[2019-06-05] MEDS: BACTROBAN OINTMENT TOP SCH ×2 (09:28→20:35)
[2019-06-05] MEDS: LASIX IV SCH (09:29)
[2019-06-05] MEDS: TAMIFLU PO SCH (09:30)
[2019-06-05] MEDS: GEODON PO SCH ×2 (09:30→20:34)
[2019-06-05] MEDS: ZOCOR PO SCH (09:30)
[2019-06-05] MEDS: VITAMIN D PO SCH (09:31)
[2019-06-05] MEDS: ICAR-C PO SCH ×3 (09:31→16:07)
[2019-06-05] MEDS: ZYPREXA PO SCH ×2 (09:31→20:34)
[2019-06-05] MEDS: XOPENEX NEB INH SCH ×3 (09:42→21:38)
[2019-06-05] MEDS: MUCOMYST 20% INH SCH ×2 (09:42→21:38)
--- NOTE | 2019-06-05 12:47 | PROGRESS NOTE ---
DATE: 06/05/2019 SUBJECTIVE: Mr. Eckert is feeling better. Seems to be breathing better. I think we have been able to slowly cut him down on his FiO2. We need to get him off the oxygen if we can. He did not come in with oxygen. OBJECTIVE: Vital Signs: Temp 98.5 degrees, pulse 97, respirations 25, blood pressure 129/82. HEENT: Pupils are equal and round. Lungs: Clear in all lung perry. Cardiovascular: Regular rhythm and rate without murmur or S3. Urine output is 4300 mL. ASSESSMENT AND PLAN: 1. Influenza B, asthma exacerbation, acute hypoxemic respiratory failure, chronic hypercapnic respiratory failure, severe scoliosis, which also contributes to chronic hypercapnic respiratory failure. Seems to be improving slowly. Will continue to try and cut down his oxygen. He is on Tamiflu. He is eating well. 2. He had a little volume overload, and will continue to diurese him. 3. Intellectual impairment secondary to cerebral palsy. 4. Hyperlipidemia. 5. Diabetes mellitus type 2. REVIEW OF ORDERS: I do not see any change. cc: Gera Weaver MD
[2019-06-05] MEDS ORDERED: BROVANA NEB ONE (15:21)
[2019-06-05] MEDS: BROVANA NEB INH SCH ×2 (15:26→21:55)
[2019-06-05] MEDS: ZYRTEC PO SCH (20:34)
[2019-06-05] MEDS: ZOLOFT PO SCH (20:34)
[2019-06-05] MEDS: SINGULAIR PO SCH (20:34)
[2019-06-06] MEDS: SOLU-MEDROL IV SCH ×4 (03:09→21:39)
[2019-06-06] MEDS: ATROVENT NEB INH SCH ×4 (03:30→21:30)
--- NOTE | 2019-06-06 06:48 | PULMONOLOGY PROGRESS NOTE ---
DATE: 06/05/2019 SUBJECTIVE: The patient is awake and alert, and follows the practitioner during the examination. He has minimal extra work up breathing. OBJECTIVE: Vital Signs: The patient has been afebrile for the last 24 hours. Blood pressure 119/76, heart rate 114, respiratory rate 20, and oxygen saturation 94% HEENT: Pupils are equal and reactive. Oropharynx appears clear. Neck: Supple. Lungs: Chest reveals faint wheezing bilaterally. Cardiac: S1 and S2. Abdomen: Soft. Extremities: Without edema. IMPRESSION: A 33-year-old with: 1. Influenza B. 2. Asthma exacerbation. 3. Chronic hypercapnic respiratory failure. 4. Acute hypoxemic respiratory failure. 5. Severe scoliosis. DISCUSSION: A 33-year-old with problems outlined above. He has completed his Tamiflu. He has no signs or symptoms of influenza at this time. He continues to have wheeze consistent with asthma exacerbation. PLAN: 1. Continue BiPAP at bedtime and p.r.n. 2. Continue steroids and nebulizer treatments. 3. Hopefully, he will be back to the [facility] by the end of the week. cc: Shantanu Rushing MD
[2019-06-06] MEDS: GEODON PO SCH ×2 (08:29→21:39)
[2019-06-06] MEDS: BACTROBAN OINTMENT TOP SCH ×2 (08:29→21:43)
[2019-06-06] MEDS: ZYPREXA PO SCH ×2 (08:29→21:40)
[2019-06-06] MEDS: ZOCOR PO SCH (08:29)
[2019-06-06] MEDS: ICAR-C PO SCH ×3 (08:29→16:30)
[2019-06-06] MEDS: VITAMIN D PO SCH (08:29)
[2019-06-06] MEDS: LASIX IV SCH (08:29)
[2019-06-06] MEDS: XOPENEX NEB INH SCH ×3 (10:11→21:30)
[2019-06-06] MEDS: BROVANA NEB INH SCH ×2 (10:11→21:30)
[2019-06-06] MEDS: MUCOMYST 20% INH SCH ×2 (10:17→21:30)
--- NOTE | 2019-06-06 13:04 | PROGRESS NOTE ---
DATE: 06/06/2019 SUBJECTIVE: Mr. Eckert is breathing better. We have been able to cut down his FiO2 nasal cannula. He is eating well, so making progress. OBJECTIVE: Vital Signs: Temperature 98.7 degrees, pulse 99, respirations 17, blood pressure 115/69. Eyes: Pupils are equal and round. Lungs: Lungs are clear in all lung perry. Cardiovascular exam: Regular rhythm and rate without murmur or S3. Abdomen: Abdomen is soft. Skin: Skin is warm and dry. ASSESSMENT AND PLAN: Influenza B asthma exacerbation, chronic hypercapnic respiratory failure and acute hypoxemic respiratory failure with underlying severe sclerosis. He continues to have some bronchospasms. Will complete his Tamiflu course. Use his BiPAP at bedtime. His oxygen is diminishing, so hopefully he can go home at the end of the week, maybe on Tuesday. Continue current medications, and review of his lab from the is unremarkable. cc: Gera Weaver MD
[2019-06-06] MEDS: ZYRTEC PO SCH (21:40)
[2019-06-06] MEDS: SINGULAIR PO SCH (21:40)
[2019-06-06] MEDS: ZOLOFT PO SCH (21:40)
[2019-06-07] MEDS: SOLU-MEDROL IV SCH ×4 (02:32→20:45)
[2019-06-07] MEDS: ATROVENT NEB INH SCH ×4 (03:45→22:56)
--- NOTE | 2019-06-07 08:42 | PULMONOLOGY PROGRESS NOTE ---
DATE: 06/06/2019 SUBJECTIVE: The patient reports he is doing "okay." He has mild work of breathing. He appears to be in no distress. OBJECTIVE: Vital Signs: The patient has been afebrile for the last 24 hours. Blood pressure 133/84, heart rate 113, respiratory rate 23, oxygen saturation 93% on 1 L per nasal cannula. HEENT: Pupils are equal and reactive. Oropharynx is clear. Neck: Neck is supple. Chest: Chest reveals faint wheezing bilaterally. Cardiac exam: S1, S2. Abdomen: Soft. Extremities: Extremities are without edema. LABORATORIES/X-RAYS: No new chemistries, CBC or chest x-ray today. IMPRESSION: A 33-year-old with: 1. Influenza B. 2. Asthma exacerbation. 3. Acute hypoxemic respiratory failure. 4. Chronic hypercapnic respiratory failure. 5. Severe scoliosis. DISCUSSION: A 33-year-old with problems outlined above. He continues to slowly improve. PLAN: 1. Cycle BiPAP at bedtime and p.r.n. 2. Continue steroids and nebulizer treatments. 3. Wean oxygen. 4. Anticipate discharge toward the end of the week if he continues to improve. cc: Shantanu Rushing MD
[2019-06-07] MEDS: VITAMIN D PO SCH (08:49)
[2019-06-07] MEDS: LASIX IV SCH (08:49)
[2019-06-07] MEDS: ICAR-C PO SCH ×3 (08:50→17:30)
[2019-06-07] MEDS: ZOCOR PO SCH (08:50)
[2019-06-07] MEDS: ZYPREXA PO SCH ×2 (08:50→20:44)
[2019-06-07] MEDS: GEODON PO SCH ×2 (08:50→20:44)
[2019-06-07] MEDS: BACTROBAN OINTMENT TOP SCH (08:51)
--- NOTE | 2019-06-07 09:52 | PROGRESS NOTE ---
DATE: 06/07/2019 SUBJECTIVE: Mr. Eckert is breathing better. He is comfortable. He is down to nasal cannula, so air and gas exchange improved. He is eating well. OBJECTIVE: Vital Signs: Temp 98 degrees, pulse 80, respirations 22, blood pressure 133/81. HEENT: Pupils are equal and round. Lungs: Clear in all lung perry. Cardiovascular: Regular rhythm and rate without murmur or S3. Urine output is 2500 mL. ASSESSMENT AND PLAN: 1. Influenza B. 2. Asthma exacerbation. 3. Acute hypoxemic respiratory failure. 4. Chronic hypercapnic respiratory failure. 5. Severe scoliosis. His air and gas exchange is improving. He has cyclic bilevel positive airway pressure at bedtime and as needed. Will continue the steroids and nebulized treatment. Continue trying to wean off oxygen. Hopefully discharge soon. REVIEW OF ORDERS: I do not see any change. He is on methylprednisone IV every 6 hours, Xopenex breathing treatments 1.25 mg inhalation every 6 hours, Lasix 40 mg IV daily, Zyrtec 10 mg at bedtime, arformoterol nebulizer 15 mcg inhalation, she is taking every 12 hours, Zoloft 50 mg a day, and Singulair 10 mg daily. cc: Gera Weaver MD
[2019-06-07] MEDS: XOPENEX NEB INH SCH ×3 (11:34→22:56)
[2019-06-07] MEDS: BROVANA NEB INH SCH ×2 (11:35→22:56)
[2019-06-07] MEDS: SINGULAIR PO SCH (20:44)
[2019-06-07] MEDS: ZOLOFT PO SCH (20:44)
[2019-06-07] MEDS: ZYRTEC PO SCH (20:44)
[2019-06-08] MEDS: BACTROBAN OINTMENT TOP SCH ×3 (00:43→20:23)
--- NOTE | 2019-06-08 02:27 | PULMONOLOGY PROGRESS NOTE ---
DATE: 06/07/2019 SUBJECTIVE: The patient reports he feels "fine." OBJECTIVE: Vital Signs: Patient has been afebrile for the last 24 hours. Blood pressure 115/76, heart rate 99, respiratory rate 16. He has minimal extra work of breathing. Oxygen saturation 95%. HEENT: Pupils are equal and reactive. Oropharynx appears clear. Neck: Supple. Chest: Reveals severe kyphoscoliosis. Cardiac: S1, S2. Abdomen: Soft. Extremities: Without edema. IMPRESSION: A 33-year-old with: 1. Influenza B. 2. Asthma exacerbation. He has minimal wheezing today and his work of breathing is decreased. 3. Acute hypoxemic respiratory failure. The patient may require low-flow oxygen at discharge given chronic hypercapnia. 4. Chronic hypercapnia. 5. Severe scoliosis. PLAN: 1. Cycle BiPAP at bedtime and p.r.n. 2. Laboratories tomorrow. 3. Consider discharge with oxygen if his O2 remains low. 4. Anticipate discharge soon. I suspect he is approaching his baseline. cc: Shantanu Rushing MD
[2019-06-08] MEDS: SOLU-MEDROL IV SCH ×4 (03:08→20:23)
[2019-06-08] MEDS: ATROVENT NEB INH SCH ×4 (03:25→21:14)
[2019-06-08 04:47] LABS: ALLEN TEST YES; BE 11.2 mmoll (-3.0-3.0); BLOOD TYPE ARTERIAL; HCO3-(ACT) 33.5 mmoll (20.0-26.0); METHB 1.4 % (0.0-1.5); O2(CT) 18.5 mL/dL (15.0-23.0); O2HB 92.6 % (95.0-99.0); PCO2(98.6) 49 mmHg (35-45); PO2(98.6) 66 mmHg (60-100); SAMPLE BLOOD; SAO2 95.9 % (95.0-100.0); THB 14.2 g/dL (11.5-17.4); pH(98.6) 7.48 (7.35-7.45)
[2019-06-08 04:51] LABS: MODALITY BI PAP
--- NOTE | 2019-06-08 06:46 | Diag Imaging Result Doc PS360 ---
EXAM: CHEST-PORTABLE HISTORY: abnormal exam TECHNIQUE: Single view COMPARISON: 06/04/2019 FINDINGS: Severe scoliosis. Heart is enlarged. There is basilar atelectasis and there may be underlying infiltrates. Small effusions. IMPRESSION: Stable chest Electronically signed by Misael Mckinley 06/08/2019 6:44 AM
[2019-06-08 06:52] LABS: BASO# 0.01 X1000 (0.0-0.2); BASO% 0.1 % (0.0-0.8); HEMATOCRIT 42.1 % (42.0-52.0); HEMOGLOBIN 13.5 g/dL (14.0-18.0); IMM GRAN# 0.26 X1000 (0.0-0.04); IMM GRAN% 2.2 % (0.0-0.5); LYMPH# 0.98 X1000 (1.2-3.4); LYMPH% 8.4 % (20.5-51.1); MCH 29.1 PG (27-31); MCHC 32.1 g/dL (33-37); MCV 90.7 FL (81-99); MONO# 0.69 X1000 (0.11-0.59); MONO% 5.9 % (1.7-9.3); MPV 9.6 FL (7.4-10.4); NEUT# 9.74 X1000 (1.4-6.5); NEUT% 83.4 % (42.2-75.2); PLT 395 X1000 (130-400); RBC 4.64 XMIL (4.7-6.1); WBC 11.68 X1000 (4.8-10.8)
[2019-06-08 07:15] LABS: ESTIMATED GFR > 60
[2019-06-08 07:21] LABS: AGAP 14; ALB/GLOB RATIO 1.4; ALBUMIN 3.8 g/dL (3.5-5.0); ALKALINE PHOSPHATASE 57 U/L (32-122); BUN 20 mg/dL (8-22); CALCIUM 8.4 mg/dL (8.8-10.2); CHLORIDE 83 mmol/L (98-107); COSMO 272; CREATININE 0.5 mg/dL (0.7-1.2); GLUCOSE 285 mg/dL (70-104); GOT 13 U/L (10-34); GPT 29 U/L (10-44); MAGNESIUM 2.6 mg/dL (1.5-2.7); PHOSPHORUS 4.1 mg/dL (2.7-4.5); POTASSIUM 4.1 mmol/L (3.5-5.1); SODIUM 129 mmol/L (136-145); TCO2 32 mmol/L (25-35); TOTAL BILIRUBIN 0.43 mg/dL (0.20-1.00); TOTAL PROTEIN 6.6 g/dL (6.3-8.3)
[2019-06-08] MEDS: ICAR-C PO SCH ×3 (08:47→16:10)
[2019-06-08] MEDS: ZOCOR PO SCH (08:47)
[2019-06-08] MEDS: GEODON PO SCH ×2 (08:47→20:23)
[2019-06-08] MEDS: ZYPREXA PO SCH ×2 (08:47→20:23)
[2019-06-08] MEDS: LASIX IV SCH (08:47)
[2019-06-08] MEDS: VITAMIN D PO SCH (08:47)
[2019-06-08] MEDS: XOPENEX NEB INH SCH ×3 (11:05→21:14)
[2019-06-08] MEDS: BROVANA NEB INH SCH ×2 (11:05→20:00)
--- NOTE | 2019-06-08 13:04 | PROGRESS NOTE ---
DATE: 06/08/2019 HISTORY: Mr. Eckert is feeling better. He is comfortable, still on a little bit of oxygen per nasal cannula. He is eating well. Bowels are moving good. Seems to feel like he has had improvement every day, or his sitters seem to feel like he has. OBJECTIVE: Vital signs are stable. Breathing comfortable. Lungs are clear in all lung perry anterolateral. Cardiovascular regular rhythm and rate without murmur or S3. Abdomen is soft. No pedal edema. Remains afebrile. Temperature 98.4 degrees, pulse 96, respirations 26, and blood pressure 132/72. His last several blood pressures have been 133/81, 115/76, 130/83, and 133/72. ASSESSMENT AND PLAN: 1. Influenza, acute hypoxemic respiratory failure. He has chronic hypercapnia still requiring low-flow oxygen. I would like to get him off oxygen before discharge. [facility]. 2. Scoliosis. Aware. Using BiPAP p.r.n. We may have to discharge with oxygen of his oxygen requirement still remains low, but hopefully can be discharged this weekend. 3. His chest x-ray from today reveals stable chest, severe scoliosis, and bibasilar atelectasis. There may be underlying infiltrate and small effusions. cc: Gera Weaver MD
[2019-06-08] MEDS ORDERED: BROVANA NEB ONE (19:15)
[2019-06-08] MEDS: SINGULAIR PO SCH (20:23)
[2019-06-08] MEDS: ZYRTEC PO SCH (20:23)
[2019-06-08] MEDS: ZOLOFT PO SCH (20:23)
[2019-06-09] MEDS: SOLU-MEDROL IV SCH ×4 (03:15→20:18)
[2019-06-09] MEDS: ATROVENT NEB INH SCH ×4 (03:21→22:07)
[2019-06-09] MEDS: BROVANA NEB INH SCH ×2 (08:00→20:02)
[2019-06-09] MEDS: ZYPREXA PO SCH ×2 (09:34→20:18)
[2019-06-09] MEDS: ZOCOR PO SCH (09:34)
[2019-06-09] MEDS: LASIX IV SCH (09:34)
[2019-06-09] MEDS: GEODON PO SCH ×2 (09:34→20:17)
[2019-06-09] MEDS: VITAMIN D PO SCH (09:34)
[2019-06-09] MEDS: ICAR-C PO SCH ×4 (09:34→17:17)
[2019-06-09] MEDS: BACTROBAN OINTMENT TOP SCH ×2 (09:34→20:18)
--- NOTE | 2019-06-09 10:55 | PROGRESS NOTE ---
DATE: 06/09/2019 SUBJECTIVE: Mr. Eckert is off of his nasal cannula. He still has Obando catheter in, and he is breathing comfortably, eating well. I think he would like to try and go home tomorrow to get things set up. We will get his catheter out. OBJECTIVE: Vital Signs: Temperature 98.2 degrees, pulse 87, respirations 17, blood pressure 125/70. Eyes: Pupils are equal and round. Lungs: Lungs are clear in all lung perry. Cardiovascular exam: Regular rhythm and rate without murmur or S3. : Urine output is 2800 mL. X-RAYS: Chest x-ray from yesterday: Severe scoliosis. Heart enlarged. There is bibasilar atelectasis, improved. Small effusions. Gas exchange doing well. ASSESSMENT AND PLAN: I think he can go home tomorrow. We will discontinue his Obando catheter. He had influenza type B, asthma exacerbation, acute hypoxemic respiratory failure with chronic hypercapnia, and underlying severe scoliosis. He hopefully can [facility] back to his [facility]. We will take his catheter out. cc: Gera Weaver MD
[2019-06-09] MEDS: XOPENEX NEB INH SCH ×3 (10:57→22:07)
[2019-06-09] MEDS: ZOLOFT PO SCH (20:17)
[2019-06-09] MEDS: SINGULAIR PO SCH (20:17)
[2019-06-09] MEDS: ZYRTEC PO SCH (20:17)
[2019-06-09] MEDS ORDERED: BROVANA NEB ONE (22:14)
[2019-06-10] MEDS: ATROVENT NEB INH SCH ×4 (03:42→21:25)
[2019-06-10] MEDS: SOLU-MEDROL IV SCH ×3 (05:22→14:59)
[2019-06-10] MEDS: XOPENEX NEB INH SCH ×3 (09:11→21:25)
[2019-06-10] MEDS: BROVANA NEB INH SCH ×2 (09:11→21:24)
[2019-06-10] MEDS: GEODON PO SCH (10:03)
[2019-06-10] MEDS: ZOCOR PO SCH (10:03)
[2019-06-10] MEDS: ZYPREXA PO SCH (10:03)
[2019-06-10] MEDS: VITAMIN D PO SCH (10:03)
[2019-06-10] MEDS: ICAR-C PO SCH ×3 (10:03→17:43)
[2019-06-10] MEDS: LASIX IV SCH (10:04)
[2019-06-10] MEDS: BACTROBAN OINTMENT TOP SCH (10:04)
[2019-06-10 12:00] VITALS: BP 130/74
--- NOTE | 2019-06-10 14:11 | DISCHARGE SUMMARY ---
ADMISSION DATE: 05/27/2019 DISCHARGE DATE: 06/10/2019 HISTORY/HOSPITAL COURSE: This is a 33-year-old he is followed by Dr. Elmer Tim. He is a 33-year-old with has a history of cerebral palsy, known to have asthma and COPD, intellectual disability secondary to cerebral palsy, previous seizures, brought [facility] from [facility] with sudden dyspnea around 5 o'clock p.m., associated nausea. No chest pain, diaphoresis, or vomiting. On exam, he was still having wheezing after several breathing treatments and tachycardia. Appears to have underlying asthma. He was admitted to the hospital, started on empiric antibiotics and we checked a nasal swab. We checked a CT of his chest. There was atelectasis but no definite pneumonia at that time of admission. He seemed to get worse. Pulmonary was consulted. He had acute hypoxemic respiratory failure, asthma exacerbation, chronic hypercapnic respiratory failure, severe scoliosis underlying leading to hypercapnic respiratory failure and turned out that he was influenza positive. Pulmonary continued to follow along. He has BiPAP at bedtime and he slowly showed some improvement in his gas and air exchange. Chest x-ray repeated on 06/08 stable, severe scoliosis, heart enlarged, bibasilar atelectasis and he continued to improve, eating well and breathing better and he was able to get him off of his oxygen and felt he was ready go home on 06/10/2019. MEDICATIONS: Discharged home on Brovana 15 mcg inhaler inhalation 1 twice a day, Zyrtec 10 mg at bedtime, vitamin D 1000 units p.o. daily. We will stop his IV Lasix. He was getting Icar C one 3 times a day and he was getting Solu-Medrol. I will put him on a Medrol Dosepak, Singulair 10 mg at bedtime and Zyprexa 2.5 mg b.i.d., simvastatin 20 mg daily and he gets Geodon 20 mg p.o. twice a day and Ultram 50 mg q.6 hours p.r.n. pain. cc: Gera Weaver MD
[2019-06-10] MEDS: BROVANA NEB ONE ×2 (15:33→15:34)
[2019-06-10] MEDS ORDERED: BROVANA NEB ONE (19:38)
== END 2019-06-10 16:30 | disposition home or self-care (01) | DRG 193 ==
LOC: ED 20:38 → SUATTDRO 05-27 03:24 → 2N 05-27 03:24 → 3N 05-28 12:47 → ICU 05-30 21:17 → 2N 06-03 15:06
PROVIDERS: ATTEND Emergency Medicine

== ENCOUNTER 2019-06-18 14:27 | Inpatient (IN) ==
[2019-06-18] MEDS ORDERED: DUONEB (A & A) INH ONE (14:42)
--- NOTE | 2019-06-18 14:44 | PROVIDER DOCUMENTATION ---
HPI-Respiratory General - General Chief Complaint: Shortness of Breath Stated Complaint: SOB Time Seen by Provider: 06/18/19 14:30 Source: patient Allergies/Adverse Reactions: Patient Allergies Allergy/AdvReac Type Severity Reaction Status Date / Time No Known Allergies Allergy Verified 06/18/19 14:49 Home Medications: Home Medication List Medication Instructions Recorded Confirmed Last Taken Type Cetirizine HCl 10 mg PO HS 07/02/13 06/18/19 06/17/19 History Montelukast [Singulair] 10 mg PO QHS 07/02/13 06/18/19 06/17/19 History Olanzapine [Zyprexa] 2.5 mg PO BID 07/02/13 06/18/19 06/18/19 History Sertraline [Zoloft] 50 mg PO QHS 07/02/13 06/18/19 06/17/19 History Tramadol HCl 50 mg PO Q6H PRN PRN 07/02/13 06/18/19 06/18/19 History Cholecalciferol (Vit D3) [Vitamin 1 tab PO DAILY 05/26/19 06/18/19 06/18/19 History D3] Iron,Carbonyl/Ascorbic Acid [Fe C 1 tab PO TID 05/26/19 06/18/19 06/18/19 History Tablet] Mupirocin Ointment [Bactroban 1 dose TOP BID 05/26/19 06/18/19 06/18/19 History Ointment] Simvastatin 20 mg PO DAILY 05/26/19 06/18/19 06/17/19 History Ziprasidone HCl 20 mg PO BID 05/26/19 05/26/19 06/18/19 History Budesonide [Pulmicort] 1 dose INH BID 06/18/19 06/18/19 06/18/19 History Fluticasone 50 Mcg Nasal [place] 1 dose INH DAILY 06/18/19 06/18/19 06/18/19 History [Flonase] Naphazoline HCl/Pheniramine 1 dose OPH BID 06/18/19 06/18/19 06/18/19 History [Visine-A Eye Allergy Drops] - History of Present Illness-Resp Nature of Presenting Problem: 33 yr old M, hx of asthma and cerebral palsy, presenting with a few days' hx of worsening shortness of breath with acute hypoxia and respiratory distress this morning. His paper box maker at the intermediate in which he resides notes that he was recently discharged a couple of weeks ago from the hospital for treatment of pneumonia, and never really seemed to recover to baseline. He was noted to be acutely dyspneic today, with an O2 sat of 85% on room air - this pt does not utilize supplemental O2 at baseline. He denies feeling hot to touch, and his paper box maker notes that other than an elevated heart rate and low O2 sat, he was not febrile. Quality of Pain: reports: none Severity in ED: reports: moderate Timing: reports: still present Context: reports: other (recent pneumonia) Exposure: reports: unknown cause Cough Quality/Degree: reports: mild Current Respiratory Medication Therapy: Initiated albuterol/atrovent inhale Modifying Factors: improves with: nothing Associated Symptoms: reports: short of breath Similar Symptoms Previously?: Yes Recently seen or treated by another doctor?: Yes Review of Systems - Adult - REVIEW OF SYSTEMS - ADULT Constitutional: reports: no symptoms reported Eyes: reports: no symptoms reported Ears, Nose, Mouth & Throat: reports: no symptoms reported Cardiovascular: reports: no symptoms reported Respiratory: reports: cough, shortness of breath Gastrointestinal: reports: no symptoms reported Genitourinary: reports: no symptoms reported Integumentary: reports: no symptoms reported Neurological: reports: other (hx of cerebral palsy) Psychiatric: reports: no symptoms reported Past History - Adult - PAST MEDICAL HISTORY-ADULT Review of Records: reports: Old Records Reviewed, Nursing Assessment Review Major Childhood Illnesses: reports: other (cerebral palsy) Cardiovascular: reports: hyperlipidemia Respiratory: reports: asthma Gastrointestinal: reports: denies history Genitourinary: reports: denies history Musculoskeletal: reports: other (extremities deformities) Neurological: reports: Seizures/Epilepsy Psychiatric: reports: other (mood disorder, intellectual disability) Endocrine/Immune: reports: denies history - FAMILY HISTORY Family History: reviewed, not pertinent - SOCIAL HISTORY Living Situation: group Physical Exam-General - PHYSICAL EXAM-ADULT Initial Vital Signs Reviewed: Yes - CONSTITUTIONAL General Appearance: alert, mild distress - EYES Eyes: PERRL/EOMI - HEAD, EARS, NOSE, MOUTH & THROAT HENMT: normocephalic/atraumatic, moist mucous membranes, other (nasal cannula in place) - RESPIRATORY Respiratory: chest non-tender, respiratory distress, accessory muscle use, wheezing (faint) - CARDIOVASCULAR Cardiovascular: no murmur, tachycardia - GASTROINTESTINAL (ABDOMEN) Abdominal Exam: normal bowel sounds, non tender, soft - MUSCULOSKELETAL Extremity: no pedal edema, no calf tenderness - SKIN Integumentary: warm/dry. negative: diaphoresis - PSYCHIATRIC Psych/Mental Status: normal mood/affect, oriented x 3 Progress - PLAN OF CARE/RESULTS Progress/Plan/Lab Results: Vital Signs - 8 hr 06/18/19 14:36 06/18/19 14:38 06/18/19 14:39 Temperature 99.7 F H Pulse Rate 137 H 138 H Respiratory Rate 31 H 37 H Blood Pressure 119/94 119/94 O2 Sat by Pulse Oximetry 89 L 90 L 88 L 06/18/19 15:07 06/18/19 15:52 06/18/19 16:00 Temperature Pulse Rate 133 H 130 H 130 H Respiratory Rate 46 H 18 17 Blood Pressure O2 Sat by Pulse Oximetry 79 L 96 06/18/19 17:00 Temperature Pulse Rate 126 H Respiratory Rate 48 H Blood Pressure O2 Sat by Pulse Oximetry 89 L Laboratory Results - last 24 hr 06/18/19 06/18/19 06/18/19 15:36 15:36 15:36 WBC 17.39 H RBC 4.48 L Hgb 13.1 L Hct 42.3 MCV 94.4 MCH 29.2 MCHC 31.0 L RDW Std Deviation 14.3 Plt Count 213 MPV 9.3 Immature Gran % (Auto) 0.6 H Neut % (Auto) 83.7 H Lymph % (Auto) 11.5 L Larue % (Auto) 3.8 Eos % (Auto) 0.3 Baso % (Auto) 0.1 Immature Gran # (Auto) 0.10 H Neut # (Auto) 14.55 H Lymph # (Auto) 2.00 Larue # (Auto) 0.66 H Eos # (Auto) 0.06 Baso # (Auto) 0.02 PT 15.3 INR 1.19 PTT (Actin FS) 37.9 D-Dimer, Quantitative 1.92 H Sodium 139 Potassium 3.9 Chloride 98 Carbon Dioxide 26 Anion Gap 15 BUN 5 L Creatinine 0.3 L Estimated GFR/1.73 m2 > 60 BUN/Creatinine Ratio 17 Glucose 141 H Calculated Osmolality 277 Calcium 9.0 Total Bilirubin 0.76 AST 13 ALT 27 Alkaline Phosphatase 100 Creatine Kinase 40 Troponin T Total Protein 6.2 L Albumin 3.6 Globulin 2.6 Albumin/Globulin Ratio 1.4 Plasma Lactate Urine Source Urine Color Urine Turbidity Urine pH Ur Specific [place] Urine Protein Ur Glucose (Stick) Ur Ketones (Stick) Urine Blood Urine Nitrite Urine Bilirubin Urobilinogen Dipstick Urine Leukocytes Urine WBC (Auto) Urine RBC (Auto) U Epithel Cells (Auto) Urine Bacteria (Auto) Urine Crystals Small Round Cells Urine Casts Urine Yeast-like Cells 06/18/19 06/18/19 06/18/19 15:36 15:36 16:10 WBC RBC Hgb Hct MCV MCH MCHC RDW Std Deviation Plt Count MPV Immature Gran % (Auto) Neut % (Auto) Lymph % (Auto) Larue % (Auto) Eos % (Auto) Baso % (Auto) Immature Gran # (Auto) Neut # (Auto) Lymph # (Auto) Larue # (Auto) Eos # (Auto) Baso # (Auto) PT INR PTT (Actin FS) D-Dimer, Quantitative Sodium Potassium Chloride Carbon Dioxide Anion Gap BUN Creatinine Estimated GFR/1.73 m2 BUN/Creatinine Ratio Glucose Calculated Osmolality Calcium Total Bilirubin AST ALT Alkaline Phosphatase Creatine Kinase Troponin T < 0.010 Total Protein Albumin Globulin Albumin/Globulin Ratio Plasma Lactate 1.0 Urine Source CLEAN CATCH Urine Color YELLOW Urine Turbidity HAZY Urine pH 6.0 Ur Specific [place] 1.029 Urine Protein 50 A Ur Glucose (Stick) NEGATIVE Ur Ketones (Stick) 20 A Urine Blood NEGATIVE Urine Nitrite NEGATIVE Urine Bilirubin NEGATIVE Urobilinogen Dipstick 8 A Urine Leukocytes NEGATIVE Urine WBC (Auto) <10 Urine RBC (Auto) <10 U Epithel Cells (Auto) <10 Urine Bacteria (Auto) NEGATIVE Urine Crystals NONE SEEN Small Round Cells Not Reportable Urine Casts NONE SEEN Urine Yeast-like Cells NONE SEEN Orders Category Date Time Status Admit - [facility] Routine AdmDCTranf 06/18/19 17:15 Active Activity - Up with Assistance ORDERED Care 06/18/19 17:15 Active Cardiac Monitoring DIRECTED Care 06/18/19 14:55 Active IV Insertion ORDERED Care 06/18/19 14:55 Completed Notify MD of + Sepsis Screen NOW Care 06/18/19 14:55 Active Notify Physician As Ordered Care 06/18/19 14:55 Active Nursing- Obtain EKG ONCE Care 06/18/19 14:42 Active CHEST-2 VIEWS [RAD] Stat Exams 06/18/19 14:43 Completed CTA [CT ANGIOGRM PULMONARY ARTERIES] [CT] Stat Exams 06/18/19 16:23 Completed BLOOD CULTURE [BLDCUL] Stat Lab 06/18/19 15:56 Results CBC WITH ELECTRONIC DIFF [HEME] Stat Lab 06/18/19 15:36 Completed CK PROFILE [SP CHEM] Stat Lab 06/18/19 15:36 Completed COMPREHENSIVE METABOLIC PANEL [CHEM] Stat Lab 06/18/19 15:36 Completed D-DIMER [COAG] Stat Lab 06/18/19 15:36 Completed LACTATE, PLASMA [CHEM] Lab 06/18/19 15:36 Completed LACTATE, PLASMA [CHEM] Lab 06/18/19 18:10 Ordered LACTATE, PLASMA [CHEM] Lab 06/18/19 21:00 Uncollected PROTIME WITH INR [COAG] Stat Lab 06/18/19 15:36 Completed PTT [COAG] Stat Lab 06/18/19 15:36 Completed SPUTUM CULTURE WITH GRAM STAIN [RM] Routine Lab 06/18/19 17:15 Uncollected TROPONIN T Stat Lab 06/18/19 15:36 Completed URINALYSIS W/POSS RFLX CULT [URINALYSIS] Stat Lab 06/18/19 16:10 Completed URINE MANUAL MICROSCOPIC [URINALYSIS] Stat Lab 06/18/19 16:10 Completed 0.9% Sodium Chloride Inj [Ns] 1,000 ml Med 06/18/19 17:15 Active IV 125 mls/hr 0.9% Sodium Chloride Inj [Ns] 1,000 ml Med 06/18/19 16:24 Discontinued IV 999 mls/hr Acetaminophen [Tylenol] Med 06/18/19 17:15 Active 650 mg PO Q4H PRN PRN Albuterol 2.5MG/Ipratrop 0.5MG [Duoneb (A & A)] Med 06/18/19 14:42 Discontinued 3 ml INH NOW ONE Cetirizine [Zyrtec] Med 06/18/19 21:00 Active 10 mg PO HS Cholecalciferol (Vit D3) [Vitamin D] Med 06/19/19 09:00 Active 1,000 unit PO DAILY Fluticasone 50 Mcg Nasal [place] [Flonase] Med 06/19/19 09:00 Active 1 spray WHITLEY DAILY Ipratropium [place] Neb [Atrovent Neb] Med 06/18/19 19:30 Active 0.5 mg INH RTQ4H Iron Carbonyl/Ascorbic Acid [Icar-C] Med 06/19/19 09:00 Active 1 each PO TID Levalbuterol Neb [Xopenex Neb] Med 06/18/19 19:30 Active 1.25 mg INH RTQ4H Montelukast [Singulair] Med 06/18/19 21:00 Active 10 mg PO QHS Mupirocin Ointment [Bactroban Ointment] Med 06/18/19 21:00 Active 1 gm TOP BID Olanzapine [Zyprexa] Med 06/18/19 21:00 Active 2.5 mg PO BID Pharmacy Order [Vancomycin IV Per Pharmacy] Med 06/18/19 17:15 Active 1 each MISC DIRECTED Piperacillin/Tazobactam [Zosyn] 3.375 gm Med 06/18/19 16:31 Discontinued 0.9% Sodium Chloride Inj [Ns] 50 ml IV NOW Piperacillin/Tazobactam [Zosyn] 3.375 gm Med 06/19/19 01:00 Active 0.9% Sodium Chloride Inj [Ns] 50 ml IV Q6H SIMVAstatin [Zocor] Med 06/19/19 09:00 Active 20 mg PO DAILY Sertraline [Zoloft] Med 06/18/19 21:00 Active 50 mg PO QHS Tetrahydrozoline Oph Drops [Visine Oph Drops] Med 06/19/19 09:00 Active 1 ml OPH BID Tramadol [Ultram] Med 06/18/19 17:15 Active 50 mg PO Q6H PRN PRN Vancomycin 1 gm/Ns Med 06/18/19 16:31 Discontinued 1 gm in 250 ml IV NOW Aerosol Treatments Routine Oth 06/18/19 14:43 Completed Aerosol Treatments Routine Oth 06/18/19 17:15 Completed Aerosol Treatments Stat Oth 06/18/19 14:43 Completed Oxygen Device Stat Oth 06/18/19 14:55 Completed EKG [EKG] Stat Ther 06/18/19 14:42 Draft Transfer/Admit Order [TRANSFER] Routine Transfer 06/18/19 17:08 Ordered ED Course - pt became increasingly tachycardic, and would barely stay at 90% gabriel n on 4L of O2 supplementation. Lab work revealed elevated WBC and elevated D- dimer; subsequent CTA Pulm did not note a PE, but did confirm a left lobar pneumonia seen on a CXR obtained earlier in the day; pt was started on sepsis protocol and the case was accepted by the hospitalist for admission. Result Diagrams: 06/18/19 15:36 06/18/19 15:36 - EKG 1 Time of EKG reading by physician:: 16:12 EKG Read and Signed by:: Nolberto Vilchis EKG Interpretation (*Must complete 3 of following elements*): Abnormal Rate: 132 Rhythm: sinus tachycardia [place]: right QRS: normal [place] Interval: normal ST Wave: non-specific ST changes - XRAY 1 XRAY Study: Chest Impression: See EMR Report XRAY Interpretation: opacity concerning for developing pneumonia - CT/MRI 1 CT Study: Angiogram Impression: See EMR Report CT Results: no PE appreciated, pneumonia confirmed - CONSULTS/PCP/HOSPITALIST Notification #1 *Consult/PCP/Hospitalist*: [facility] for Dr. Browning Consult Disposition: Admit Departure - Departure Date of Disposition Decision: 06/18/19 Time of Disposition Decision: 18:47 DIAGNOSIS: Elevated d-dimer Pneumonia Qualifiers: Pneumonia type: due to unspecified organism Laterality: left Lung location: unspecified part of lung Qualified Code(s): J18.9 - Pneumonia, unspecified organism Leukocytosis Qualifiers: Leukocytosis type: other Qualified Code(s): D72.828 - Other elevated white blood cell count Disposition: ADMITTED INPATIENT 09 Certified Medical Emergency: Emergent Condition: Fair - Critical Care Note This patient required my direct & personal management of CC.: No Attestation - Physician/ AIDEN Attestation Patient care was provided by Advanced Practice Provider:: No The physician spent face to face time with patient:: Yes Advanced Practice Provider documentation review:: Supervising physician onsite and consulted in the evaluation and care of this patient. The physician did have a face to face encounter with the patient.
--- NOTE | 2019-06-18 15:25 | Diag Imaging Result Doc PS360 ---
EXAM: CHEST-2 VIEWS INDICATION: short of breath TECHNIQUE: 3 views COMPARISON: 06/08/2019 FINDINGS: There is stable marked elevation of the left hemidiaphragm. There is stable scoliosis. There has been interval development of a focal consolidation in the left lung. It is somewhat rounded. This probably represents developing pneumonia. No other definite consolidation is appreciated. Cardiac silhouette is stable. IMPRESSION: Interval development of a rounded opacity in the left lung suggesting developing pneumonia. Electronically signed by Alexis Carnes 06/18/2019 3:23 PM
[2019-06-18 15:51] LABS: BASO# 0.02 X1000 (0.0-0.2); BASO% 0.1 % (0.0-0.8); EOS# 0.06 X1000 (0.0-0.7); EOS% 0.3 % (0.0-10.0); HEMATOCRIT 42.3 % (42.0-52.0); HEMOGLOBIN 13.1 g/dL (14.0-18.0); IMM GRAN% 0.6 % (0.0-0.5); LYMPH% 11.5 % (20.5-51.1); MCH 29.2 PG (27-31); MCV 94.4 FL (81-99); MONO# 0.66 X1000 (0.11-0.59); MONO% 3.8 % (1.7-9.3); MPV 9.3 FL (7.4-10.4); NEUT# 14.55 X1000 (1.4-6.5); NEUT% 83.7 % (42.2-75.2); PLT 213 X1000 (130-400); RBC 4.48 XMIL (4.7-6.1); RDW 14.3 % (11.5-14.5); WBC 17.39 X1000 (4.8-10.8)
[2019-06-18 16:05] LABS: INR 1.19; PROTIME 15.3 Seconds (11.0-16.0)
[2019-06-18 16:06] LABS: PTT 37.9 Seconds (22.3-41.8)
[2019-06-18 16:18] LABS: AGAP 15; ALB/GLOB RATIO 1.4; ALBUMIN 3.6 g/dL (3.5-5.0); ALKALINE PHOSPHATASE 100 U/L (32-122); BUN 5 mg/dL (8-22); CHLORIDE 98 mmol/L (98-107); CK PROFILE 40 U/L (24-204); COSMO 277; CREATININE 0.3 mg/dL (0.7-1.2); ESTIMATED GFR > 60; GLUCOSE 141 mg/dL (70-104); GOT 13 U/L (10-34); GPT 27 U/L (10-44); POTASSIUM 3.9 mmol/L (3.5-5.1); SODIUM 139 mmol/L (136-145); TCO2 26 mmol/L (25-35); TOTAL BILIRUBIN 0.76 mg/dL (0.20-1.00); TOTAL PROTEIN 6.2 g/dL (6.3-8.3)
[2019-06-18 16:22] LABS: URINE SOURCE CLEAN CATCH
[2019-06-18] MEDS ORDERED: NS 1,000 ML IV ONE (16:24)
[2019-06-18 16:27] LABS: BILIRUBIN URINE NEGATIVE (NEGATIVE); BLOOD URINE NEGATIVE (NEGATIVE); COLOR YELLOW; GLUCOSE URINE NEGATIVE (NEGATIVE); KETONE URINE 20 mg/dL (NEGATIVE); LEUKOCYTES URINE NEGATIVE (NEGATIVE); NITRITE URINE NEGATIVE (NEGATIVE); PROTEIN URINE 50 mg/dL (NEGATIVE); SP GRAVITY URINE 1.029; TURBIDITY URINE HAZY (CLEAR); UROBILINOGEN URINE 8 mg/dL (NORMAL)
[2019-06-18 16:31] LABS: UR EPITHELIAL CELLS <10 /HPF (<10); URINE BACTERIA NEGATIVE /HPF; URINE RBC <10 /HPF (<10); URINE WBC <10 /HPF (<10)
[2019-06-18] MEDS ORDERED: VANCOMYCIN 1 GM/NS 1 GM/250 ML IVPB IV ONE (16:31)
[2019-06-18] MEDS ORDERED: ZOSYN 3.375 GM in NS 50 ML IV ONE (16:31)
--- NOTE | 2019-06-18 16:44 | EKG Report ---
Test Performed on : 06/18/2019 4:11:52 PM Test Reason : SOB Blood Pressure : / mmHG Vent. Rate : 132 BPM Atrial Rate : 132 BPM P-R Int : 132 ms QRS Dur : 090 ms QT Int : 288 ms P-R-T Axes : 059 077 261 degrees QTc Int : 426 ms Sinus tachycardia. T wave abnormality, consider inferior ischemia Abnormal ECG When compared with ECG of 26-MAY-2019 21:52, (Unconfirmed) Criteria for Septal infarct are no longer present Unconfirmed Result
[2019-06-18 16:46] LABS: URINE CASTS NONE SEEN; URINE CRYSTALS NONE SEEN; URINE YEAST NONE SEEN
[2019-06-18] MEDS ORDERED: VANCOMYCIN IV PER PHARMACY MISC SCH (17:15)
[2019-06-18] MEDS ORDERED: ULTRAM PO PRN (17:15)
[2019-06-18] MEDS ORDERED: TYLENOL PO PRN (17:15)
--- NOTE | 2019-06-18 17:25 | Diag Imaging Result Doc PS360 ---
CT ANGIOGRM PULMONARY ARTERIES - 06/18/2019 INDICATION: SOB, Elevated D-dimer TECHNIQUE: Axial CT images were obtained after administering intravenous contrast. Coronal MIP images were generated. COMPARISON: None FINDINGS: No obvious pulmonary embolism. There are rounded infiltrates in the left upper and lower lobes. There is also significant ill-defined infiltrate or atelectasis in the right lower lobe. Heart size is grossly normal. There is marked scoliosis. IMPRESSION: Bilateral infiltrates consistent with pneumonia. The ones on the left side are rounded. This exam was performed using automated exposure control, adjustment of mA or kV according to patient size, and/or use of iterative reconstruction technique Electronically signed by Cesar Tsai 06/18/2019 5:22 PM
[2019-06-18] MEDS: NS 1,000 ML IV SCH (18:46)
[2019-06-18] MEDS: XOPENEX NEB INH SCH ×2 (19:27→23:51)
[2019-06-18] MEDS: ATROVENT NEB INH SCH ×2 (19:27→23:51)
[2019-06-18 19:49] LABS: ALLEN TEST YES; BE 4.2 mmoll (-3.0-3.0); BLOOD TYPE ARTERIAL; METHB 1.2 % (0.0-1.5); O2(CT) 15.4 mL/dL (15.0-23.0); PCO2(98.6) 40 mmHg (35-45); PO2(98.6) 51 mmHg (60-100); SAMPLE BLOOD; SAO2 91.1 % (95.0-100.0); THB 12.5 g/dL (11.5-17.4); pH(98.6) 7.46 (7.35-7.45)
[2019-06-18 19:50] LABS: MODALITY COOL AEROSOL
[2019-06-18 19:51] LABS: O2HB 87.5 % (95.0-99.0)
[2019-06-18] MEDS ORDERED: ZYPREXA PO SCH (21:00)
--- NOTE | 2019-06-18 22:30 | HISTORY AND PHYSICAL ---
PRIMARY CARE PROVIDER: Elaine Tim MD CHIEF COMPLAINT: Shortness of breath. HISTORY OF PRESENT ILLNESS: Mr. Eckert is a 33-year-old male with a medical history of cerebral palsy, seizures, but none recently, bilateral hip replacements, asthma and obstructive sleep apnea who wears CPAP at night. He was recently admitted earlier in May for pneumonia. He was treated and sent back to his skilled nursing where he is from. The worker who was with him states that he never really returned to his baseline. He is in a motorized wheelchair. His right arm is contracted, but uses his left hand to help with maneuvering the motorized wheelchair. She states he has essentially had a cough ever sense and coughs up thick green- colored phlegm. He denies fever, but he has been having the sweats and the shortness of breath became acutely significant this morning with documented hypoxia as well. He is not on home oxygen and his O2 saturations were in the mid 80s on room air. Imaging reveals that he has bilateral pneumonia. He has been started on broad-spectrum antibiotics. He is tachycardic. His sats are improving with oxygen, but he is still quite tachypneic and we are going to watch him in the ICU overnight. PAST MEDICAL HISTORY: 1. Obstructive sleep apnea with CPAP at night. 2. History of seizures secondary to cerebral palsy. 3. Cerebral palsy, wheelchair bound in a motorized wheelchair. Only has use of the left hand to help maneuver it. 4. Asthma. 5. Depression. 6. Iron-deficiency anemia. 7. Seasonal allergies. 8. Hyperlipidemia. 9. Chronic pain. SURGICAL HISTORY: 1. Bilateral hip replacement. 2. Oh in the back. SOCIAL HISTORY: No tobacco, alcohol or illicit drug use. He is in a skilled nursing called [facility]. He uses a motorized wheelchair with his left hand. FAMILY HISTORY: Is unknown. ALLERGIES: No known drug allergies. HOME MEDICATIONS: 1. Singulair 10 mg p.o. nightly. 2. Zoloft 50 mg p.o. nightly. 3. Bactroban 1 dose topical as needed twice daily. 4. Cetirizine 10 mg p.o. nightly. 5. Iron or Icar C1 tab p.o. 3 times a day. 6. Flonase daily. 7. Pulmicort inhaled twice daily. 8. Simvastatin 20 mg p.o. daily. 9. Ultram 50 mg p.o. every 6 hours p.r.n. 10. Visine both eyes twice a day. 11. Vitamin D3 1000 units p.o. daily. 12. Zyprexa 2.5 mg p.o. twice daily. REVIEW OF SYSTEMS: Difficult to obtain, but 14 point review of systems are complete and all were negative for those mentioned above in the HPI. PHYSICAL EXAMINATION: VITAL SIGNS: Temperature 99.7 degrees, heart rate 124, respiratory rate 31, blood pressure 119/94, O2 saturation 90 to 96 percent on 2 L nasal cannula. GENERAL: Mr. Rohit Eckert is a 33-year-old male. He seems to be in mild distress with tachypnea. Answers questions in short answers. HEENT: Atraumatic, normocephalic. Pupils are equal and reactive. Extraocular movements were intact. Mucous membranes are moist. NECK: Unable to visualize trachea. He has got a very large rounded neck. Poor body habitus. Unable to assess for JVD. Negative for carotid bruits. CARDIOVASCULAR: S1, S2. Tachycardic rate and rhythm. No rubs, gallops, or murmurs. EXTREMITY: Mild lower extremity edema, +1 dorsalis and pedal pulses and radial pulses. PULMONARY: Decreased in the bases. He has got positive accessory muscle use or work of breathing is noted. GI: Soft, nontender, nondistended. Positive bowel sounds x4. EXTREMITIES: Unable to move all extremities. He has got some trace movement in the left hand, which is what he uses to move his motorized wheelchair. NEUROLOGIC: Oriented to name, followed commands. Decreased sensory. SKIN: Warm, dry, intact. LABORATORY DATA: White blood cells 17,000, hemoglobin 13, hematocrit 42, platelet count 213,000. INR is 1.19, PTT 37.9. D-dimer is 1.92. Sodium 139, potassium 3.9, BUN is 5, creatinine 0.3, glucose 141, calcium 9.0, bilirubin 0.76, AST 13, ALT 27, CK 40, troponin less than 0.01. Albumin is 3.6. Serum lactate is 1.0. Urinalysis 50 protein, 20 ketones, 8 urobilinogen. IMAGING: Chest x-ray: Interval development of a rounded opacity in the left lung suggesting developing pneumonia. Pulmonary arteriogram: Bilateral infiltrates consistent with pneumonia. The ones on the left side are rounded. There is no pulmonary embolism. EKG: Sinus tachycardia, rate 132, QTc was 426. ASSESSMENT/PLAN: 1. Bibasilar pneumonia with respiratory insufficiency and hypoxia. He is going to be started on broad-spectrum antibiotics. He is tachycardic, tachypneic. He will have nebulizers, Xopenex every 4 hours and Atrovent. We will consult Pulmonary. 2. Obstructive sleep apnea. Wears CPAP at night. 3. Asthma. I do not feel like this is an asthma exacerbation. I feel like this is from the pneumonia and tachypnea, but again he still on nebulizers. 4. Seasonal allergies. Home medications continued. 5. Depression. Zoloft continued. 6. Hyperlipidemia. Statin continued. 7. History of seizures, but apparently none in years. 8. Deep venous thrombosis prophylaxis. Sequential compression devices. Dictated by LORI Dan for Laci Snyder MD cc: LORI Dan MD 33 y/o patient presenting with shortness of breath. Chest imaging positive for bilateral infiltrates consistent with pneumonia. I Agree with the assessment and plan of the LORI. Dr. Snyder. [facility]
[2019-06-18] MEDS: SINGULAIR PO SCH (23:53)
[2019-06-18] MEDS: ZYRTEC PO SCH (23:53)
[2019-06-18] MEDS: BACTROBAN OINTMENT TOP SCH (23:53)
[2019-06-18] MEDS: ZOLOFT PO SCH (23:53)
[2019-06-19] MEDS: ZOSYN 3.375 GM in NS 50 ML IV SCH ×4 (00:09→18:54)
[2019-06-19] MEDS: NS 1,000 ML IV SCH ×4 (02:00→19:02)
[2019-06-19] MEDS: ATROVENT NEB INH SCH ×6 (03:11→23:32)
[2019-06-19] MEDS: XOPENEX NEB INH SCH ×6 (03:11→23:32)
[2019-06-19] MEDS ORDERED: VANCOMYCIN 1 GM/NS 1 GM/250 ML IVPB IV SCH (06:00)
[2019-06-19 06:40] LABS: ALLEN TEST YES; BE 1.2 mmoll (-3.0-3.0); BLOOD TYPE ARTERIAL; HCO3-(ACT) 25.9 mmoll (20.0-26.0); METHB 1.4 % (0.0-1.5); O2(CT) 15.7 mL/dL (15.0-23.0); O2HB 96.6 % (95.0-99.0); PCO2(98.6) 41 mmHg (35-45); PO2(98.6) 138 mmHg (60-100); SAMPLE BLOOD; SAO2 100.7 % (95.0-100.0); THB 11.4 g/dL (11.5-17.4); pH(98.6) 7.41 (7.35-7.45)
[2019-06-19 06:41] LABS: MODALITY CANNULA
[2019-06-19 08:47] LABS: BASO# 0.03 X1000 (0.0-0.2); BASO% 0.3 % (0.0-0.8); EOS# 0.11 X1000 (0.0-0.7); HEMATOCRIT 36.6 % (42.0-52.0); HEMOGLOBIN 11.1 g/dL (14.0-18.0); IMM GRAN# 0.06 X1000 (0.0-0.04); IMM GRAN% 0.5 % (0.0-0.5); LYMPH# 1.43 X1000 (1.2-3.4); LYMPH% 12.6 % (20.5-51.1); MCH 29.2 PG (27-31); MCHC 30.3 g/dL (33-37); MCV 96.3 FL (81-99); MONO# 0.44 X1000 (0.11-0.59); MONO% 3.9 % (1.7-9.3); MPV 8.8 FL (7.4-10.4); NEUT# 9.31 X1000 (1.4-6.5); NEUT% 81.7 % (42.2-75.2); PLT 182 X1000 (130-400); RDW 14.1 % (11.5-14.5); WBC 11.38 X1000 (4.8-10.8)
[2019-06-19 08:59] LABS: AGAP 14; ALB/GLOB RATIO 0.9; ALBUMIN 2.9 g/dL (3.5-5.0); ALKALINE PHOSPHATASE 77 U/L (32-122); BUN 4 mg/dL (8-22); CALCIUM 8.1 mg/dL (8.8-10.2); CHLORIDE 103 mmol/L (98-107); COSMO 281; CREATININE 0.2 mg/dL (0.7-1.2); ESTIMATED GFR > 60; GLUCOSE 111 mg/dL (70-104); GOT 11 U/L (10-34); GPT 22 U/L (10-44); POTASSIUM 3.6 mmol/L (3.5-5.1); SODIUM 142 mmol/L (136-145); TCO2 25 mmol/L (25-35); TOTAL BILIRUBIN 0.95 mg/dL (0.20-1.00); TOTAL PROTEIN 6.2 g/dL (6.3-8.3)
[2019-06-19] MEDS: VITAMIN D PO SCH (09:19)
[2019-06-19] MEDS: ICAR-C PO SCH ×3 (09:19→16:04)
[2019-06-19] MEDS: ZYPREXA PO SCH ×2 (09:19→20:04)
[2019-06-19] MEDS: BACTROBAN OINTMENT TOP SCH ×2 (09:20→20:04)
[2019-06-19] MEDS: ZOCOR PO SCH (09:20)
[2019-06-19] MEDS: FLONASE NAS SCH (10:15)
[2019-06-19] MEDS: VISINE OPH DROPS OPH SCH ×2 (10:16→20:04)
--- NOTE | 2019-06-19 18:16 | PROGRESS NOTE ---
DATE: 06/19/2019 SUBJECTIVE: Mr. Eckert is doing a little better, breathing a little better. He remains afebrile. OBJECTIVE: Vital signs: Temperature 98.6 degrees, pulse 100, respirations 30, blood pressure 134/85. HEENT: Pupils are equal and round. Lungs: Clear in all lung perry. Cardiovascular: Regular rhythm and rate without murmur or S3. Abdomen: Soft. Skin: Warm and dry. Urine output 1,800. ASSESSMENT AND PLAN: 1. Bibasilar pneumonia. Recently was in the hospital with influenza I believe type B. We had him on broad-spectrum antibiotics for some time and we were able to wean him off the oxygen. He is back in and has some nebulizer, bronchodilators, and will continue some broad-spectrum empiric antibiotic. 2. Obstructive sleep apnea, on CPAP at night. 3. Asthma with asthma exacerbation. 4. Seasonal allergies. Continue his home medication. 5. Depression. He is on Zoloft. 6. Hyperlipidemia. Statin continued. 7. History of seizures. He has not had any apparently in several years. REVIEW OF ORDERS: He is on Singulair 10 mg at bedtime, Zoloft 50 mg at bedtime, Zyrtec 10 mg at bedtime, iron carbonyl 1 t.i.d., normal saline 125 mL an hour, Zyprexa 2.5 mg b.i.d., Zocor 20 mg a day, Ultram 50 mg p.o. q.6 hours p.r.n., vancomycin 1 g IV q.18. REVIEW OF RECENT LABS: White count has come down to 11,380 from 17,000, hematocrit is 36, platelet count 182,000. Sodium 142, potassium 3.6, chloride 103, BUN 4, creatinine 0.2. cc: Gera Weaver MD
[2019-06-19] MEDS: ZYRTEC PO SCH (20:04)
[2019-06-19] MEDS: SINGULAIR PO SCH (20:04)
[2019-06-19] MEDS: ZOLOFT PO SCH (20:04)
--- NOTE | 2019-06-19 22:30 | CONSULTATION ---
DATE OF CONSULTATION: 06/19/2019 REQUESTING PROVIDER: LORI Dan. REASON FOR CONSULTATION: Hypoxia, pneumonia. HISTORY OF PRESENT ILLNESS: This is a 33-year-old male with a medical history of COPD, asthma, obstructive sleep apnea, cerebral palsy, intellectual limitations, seizures, and severe kyphoscoliosis. He had been last admitted to our facility from 05/27/2019 to 06/10/2019 with acute hypoxic respiratory failure secondary to asthma exacerbation. He presented to the ER yesterday with worsening shortness of breath and desaturation. CT angiogram pulmonary arteries showed bilateral infiltrates consistent with pneumonia, though infiltrates in the left upper and lower lobes apparently rounded. The patient currently is lying in bed with no acute distress noted. He is on nasal cannula at 4 L. The sitter from the jail [facility] he [facility] reported that he does not use oxygen at home. The patient has been using Pulmicort at home and recently start using some rescue inhaler, but the frequencies unknown. PAST MEDICAL AND SURGICAL HISTORY: 1. COPD. 2. Asthma. 3. Obstructive sleep apnea with CPAP at nighttime. 4. Cerebral palsy, wheelchair bound in a motorized wheelchair. 5. Seizure secondary to cerebral palsy. 6. Iron-deficiency anemia. 7. Depression. 8. Hypolipidemia. 9. Chronic pain. 10. Severe kyphoscoliosis. 11. Multiple contractions. 12. Status post bilateral hip replacements. 13. Status post lore in the back. SOCIAL HISTORY: [facility] [place] jail. He uses a motorized wheelchair. He has no history of alcohol, tobacco, or illicit drug use. FAMILY HISTORY: Unknown. ALLERGIES: No known drug allergies. REVIEW OF SYSTEMS: Difficult to be obtained. PHYSICAL EXAMINATION: Vital Signs: Temperature of 97.2, blood pressure 108/75, pulse is 105, respiratory rate 24, oxygen saturation 96% on nasal cannula at 4. General: Bed bound, chronically ill-appearing male with no acute distress noted. HEENT: Trachea midline. Mucosa pink and moist. Respiratory: Even and unlabored. Symmetrical excursion. Auscultation revealed diminished breathing sounds bibasilarly with the left side worse than the right side. Cardiovascular: Regular rate and rhythm. Gastrointestinal: Soft, nontender and slightly distended. Normoactive bowel sounds in all 4 quadrants. Extremities: Trace pedal edema, severe contractures. Neurologic: Alert and oriented to name. Follows simple commands. LAB DATA: White blood cell 11.38, hemoglobin 11.1, hematocrit 36.6, platelet 182,000. Sodium 142, potassium 3.6, chloride 103, carbon dioxide 25, BUN 4, creatinine 0.2, glucose 111. ABG: PH 7.41, pCO2 of 41, PO2 138, carbon dioxide 25.9, base excess 1.2, and oxyhemoglobin 96.6. ASSESSMENT: This is a 33-year-old male with a medical history of chronic obstructive pulmonary disease, asthma, obstructive sleep apnea, cerebral palsy with intellectual limitation, seizure, depression, iron-deficiency anemia, hyperlipidemia, chronic pain, and severe kyphoscoliosis. He has been admitted since yesterday with bibasilar pneumonia and acute hypoxic respiratory failure. 1. Acute hypoxic respiratory failure. 2. Bibasilar pneumonia with rounded infiltrates in the left upper and lower lobes. 3. Asthma and chronic obstructive pulmonary disease. 4. Severe scoliosis. 5. Obstructive sleep apnea. PLAN: 1. Continue supplemental oxygen. Start BiPAP at bedtime and as needed. 2. Continue antibiotic and bronchodilators. 3. Follow up with CBC, CMP, sputum culture and blood culture. 4. Consider outpatient chest CT followup within 3 months. 5. Further recommendations pending hospital course. Thank you for the courtesy of this consult. Dictated by LORI Hoffman for Huy Cadena MD cc: LORI Hoffman MD [facility]
[2019-06-20] MEDS ORDERED: VANCOMYCIN 1 GM/NS 1 GM/250 ML IVPB IV SCH
[2019-06-20] MEDS: ZOSYN 3.375 GM in NS 50 ML IV SCH ×4 (01:01→18:07)
[2019-06-20] MEDS: NS 1,000 ML IV SCH ×3 (01:01→17:22)
[2019-06-20] MEDS: XOPENEX NEB INH SCH ×6 (03:35→23:18)
[2019-06-20] MEDS: ATROVENT NEB INH SCH ×6 (03:35→23:18)
[2019-06-20 06:09] LABS: BASO# 0.01 X1000 (0.0-0.2); BASO% 0.1 % (0.0-0.8); EOS# 0.13 X1000 (0.0-0.7); EOS% 1.6 % (0.0-10.0); HEMATOCRIT 34.1 % (42.0-52.0); HEMOGLOBIN 10.4 g/dL (14.0-18.0); IMM GRAN# 0.05 X1000 (0.0-0.04); IMM GRAN% 0.6 % (0.0-0.5); LYMPH# 1.29 X1000 (1.2-3.4); LYMPH% 15.7 % (20.5-51.1); MCH 29.2 PG (27-31); MCHC 30.5 g/dL (33-37); MCV 95.8 FL (81-99); MONO# 0.39 X1000 (0.11-0.59); MONO% 4.7 % (1.7-9.3); MPV 8.8 FL (7.4-10.4); NEUT# 6.36 X1000 (1.4-6.5); NEUT% 77.3 % (42.2-75.2); PLT 187 X1000 (130-400); RBC 3.56 XMIL (4.7-6.1); RDW 13.8 % (11.5-14.5); WBC 8.23 X1000 (4.8-10.8)
[2019-06-20 06:43] LABS: AGAP 16; ALB/GLOB RATIO 0.8; ALBUMIN 2.6 g/dL (3.5-5.0); ALKALINE PHOSPHATASE 76 U/L (32-122); BUN 2 mg/dL (8-22); CALCIUM 8.5 mg/dL (8.8-10.2); CHLORIDE 105 mmol/L (98-107); COSMO 286; CREATININE 0.3 mg/dL (0.7-1.2); ESTIMATED GFR > 60; GLUCOSE 120 mg/dL (70-104); GOT 12 U/L (10-34); GPT 21 U/L (10-44); SODIUM 145 mmol/L (136-145); TCO2 24 mmol/L (25-35); TOTAL BILIRUBIN 0.62 mg/dL (0.20-1.00)
[2019-06-20] MEDS: VITAMIN D PO SCH (09:25)
[2019-06-20] MEDS: ZOCOR PO SCH (09:25)
[2019-06-20] MEDS: ICAR-C PO SCH ×3 (09:25→17:20)
[2019-06-20] MEDS: ZYPREXA PO SCH ×2 (09:25→21:49)
[2019-06-20] MEDS: BACTROBAN OINTMENT TOP SCH ×2 (09:28→21:51)
[2019-06-20] MEDS: FLONASE NAS SCH (09:28)
[2019-06-20] MEDS: VISINE OPH DROPS OPH SCH ×2 (09:28→21:50)
--- NOTE | 2019-06-20 10:03 | PROGRESS NOTE ---
DATE: 06/20/2019 SUBJECTIVE: Mr. Eckert seems to be breathing more comfortably, appears comfortable at the present time. OBJECTIVE: Vital Signs: Remains afebrile, temperature 98.9 degrees, pulse 87, respirations 20, blood pressure 153/104. HEENT: Pupils are equal and round. Lungs: Clear in all lung perry. Cardiovascular: Regular rhythm and rate without murmur or S3. Abdomen: Soft. Skin: Warm and dry. Urine output was 4800 mL. ASSESSMENT AND PLAN: Bibasilar pneumonia. Recently was in the hospital with influenza B and broad-spectrum antibiotics for secondary bacterial pneumonia. He has underlying severe scoliosis and obstructive sleep apnea and underlying asthma. Continue to try and clear his lungs. Continue current antibiotics. He is on Singulair 10 mg a day, Zoloft 50 mg a day, Zyrtec 10 mg a day, Zocor 20 mg by mouth daily, getting vancomycin 1 gram intravenously every 18 hours, and piperacillin 3.375 grams intravenously every 6 hours. cc: Gera Weaver MD
[2019-06-20] MEDS: VANCOMYCIN 1 GM/NS 1 GM/250 ML IVPB IV SCH (19:22)
[2019-06-20] MEDS: SINGULAIR PO SCH (21:49)
[2019-06-20] MEDS: ZOLOFT PO SCH (21:49)
[2019-06-20] MEDS: ZYRTEC PO SCH (21:49)
[2019-06-20] MEDS ORDERED: TESSALON PO PRN (22:34)
[2019-06-21] MEDS: ZOSYN 3.375 GM in NS 50 ML IV SCH ×4 (00:40→19:03)
[2019-06-21] MEDS: NS 1,000 ML IV SCH ×3 (00:41→20:15)
[2019-06-21] MEDS: ATROVENT NEB INH SCH ×6 (03:50→23:52)
[2019-06-21] MEDS: XOPENEX NEB INH SCH ×6 (03:50→23:52)
[2019-06-21 06:00] LABS: BASO# 0.02 X1000 (0.0-0.2); BASO% 0.3 % (0.0-0.8); EOS# 0.13 X1000 (0.0-0.7); HEMATOCRIT 33.4 % (42.0-52.0); HEMOGLOBIN 10.1 g/dL (14.0-18.0); IMM GRAN# 0.07 X1000 (0.0-0.04); IMM GRAN% 1.1 % (0.0-0.5); LYMPH# 1.38 X1000 (1.2-3.4); LYMPH% 20.8 % (20.5-51.1); MCH 28.9 PG (27-31); MCHC 30.2 g/dL (33-37); MCV 95.4 FL (81-99); MONO# 0.42 X1000 (0.11-0.59); MONO% 6.3 % (1.7-9.3); MPV 8.7 FL (7.4-10.4); NEUT# 4.61 X1000 (1.4-6.5); NEUT% 69.5 % (42.2-75.2); PLT 192 X1000 (130-400); RDW 13.7 % (11.5-14.5); WBC 6.63 X1000 (4.8-10.8)
[2019-06-21] MEDS: VANCOMYCIN 1 GM/NS 1 GM/250 ML IVPB IV SCH ×2 (06:26→17:25)
[2019-06-21 06:29] LABS: AGAP 13; ALB/GLOB RATIO 0.9; ALBUMIN 2.7 g/dL (3.5-5.0); ALKALINE PHOSPHATASE 74 U/L (32-122); BUN 1 mg/dL (8-22); CALCIUM 8.2 mg/dL (8.8-10.2); CHLORIDE 104 mmol/L (98-107); COSMO 286; CREATININE 0.3 mg/dL (0.7-1.2); ESTIMATED GFR > 60; GLUCOSE 125 mg/dL (70-104); GOT 13 U/L (10-34); GPT 21 U/L (10-44); POTASSIUM 2.9 mmol/L (3.5-5.1); SODIUM 145 mmol/L (136-145); TCO2 28 mmol/L (25-35); TOTAL BILIRUBIN 0.42 mg/dL (0.20-1.00); TOTAL PROTEIN 5.8 g/dL (6.3-8.3)
--- NOTE | 2019-06-21 07:14 | Diag Imaging Result Doc PS360 ---
EXAM: CHEST-1 VIEW 06/21/2019 HISTORY: SOB TECHNIQUE: AP portable upright at 0542 COMMENT: There is a rounded opacity in the perihilar portion of the left upper lobe and a somewhat platelike opacity in the more inferior left lung. The right lung is essentially clear and unchanged since 06/18/2019. IMPRESSION: Left upper and possible lower lobe pneumonia. Electronically signed by Devan Kelly 06/21/2019 7:12 AM
--- NOTE | 2019-06-21 08:52 | PROVIDER PROGRESS NOTE ---
Progress Note Pulmonary additional note: Case assessed. Full note to follow.
[2019-06-21] MEDS: BACTROBAN OINTMENT TOP SCH ×2 (10:05→20:16)
[2019-06-21] MEDS: VISINE OPH DROPS OPH SCH ×2 (10:05→20:16)
[2019-06-21] MEDS: ZOCOR PO SCH (10:06)
[2019-06-21] MEDS: ICAR-C PO SCH ×3 (10:06→17:25)
[2019-06-21] MEDS: VITAMIN D PO SCH (10:06)
[2019-06-21] MEDS: ZYPREXA PO SCH ×2 (10:06→20:15)
[2019-06-21] MEDS: FLONASE NAS SCH (10:07)
--- NOTE | 2019-06-21 13:28 | PROGRESS NOTE ---
DATE: 06/21/2019 SUBJECTIVE: Mr. Eckert is eating. He is feeling better and he is breathing better. He is still coughing up some blood-tinged sputum. OBJECTIVE: Temperature 98.8 degrees, pulse 104, respirations 17, blood pressure 134/90. Pupils are equal and round. Lungs are clear in all lung perry. Cardiovascular Examination: Regular rhythm and rate without murmur or S3. Abdomen is soft. Skin is warm and dry. ASSESSMENT AND PLAN: Chest x-ray, left upper and possible lower lobe pneumonia. Continue intravenous antibiotics and bronchodilators, supplementary oxygen. He seems to be making progress. He was hospitalized a couple of weeks ago with type B influenza and he has bibasilar pneumonia so continue Singulair 10 mg at bedtime, Zoloft 50 mg by mouth at bedtime, Tessalon Perles 100 mg three times a day, Zyrtec 10 mg at bedtime, vitamin D 1000 units daily, fluticasone nasal spray 1 puff daily, iron and carbinol 1 by mouth three times a day, normal saline at 125 mL every hour, Zyprexa 2.5 mg twice a day, Zocor 20 mg daily, tramadol 50 mg by mouth every 6 hours, and vancomycin 1 g intravenous every 12 hours, Zosyn 3.375 g intravenously every 6 hours. cc: Gera Weaver MD
[2019-06-21] MEDS: SINGULAIR PO SCH (20:15)
[2019-06-21] MEDS: ZOLOFT PO SCH (20:15)
[2019-06-21] MEDS: ZYRTEC PO SCH (20:16)
[2019-06-22] MEDS: ZOSYN 3.375 GM in NS 50 ML IV SCH ×4 (00:17→20:40)
[2019-06-22] MEDS: XOPENEX NEB INH SCH ×6 (03:52→23:48)
[2019-06-22] MEDS: ATROVENT NEB INH SCH ×6 (03:52→23:48)
[2019-06-22] MEDS: NS 1,000 ML IV SCH ×3 (04:54→23:22)
[2019-06-22] MEDS: VANCOMYCIN 1 GM/NS 1 GM/250 ML IVPB IV SCH (05:00)
[2019-06-22 05:56] LABS: BASO# 0.02 X1000 (0.0-0.2); BASO% 0.4 % (0.0-0.8); EOS# 0.17 X1000 (0.0-0.7); EOS% 3.1 % (0.0-10.0); HEMOGLOBIN 9.7 g/dL (14.0-18.0); IMM GRAN# 0.06 X1000 (0.0-0.04); IMM GRAN% 1.1 % (0.0-0.5); LYMPH# 1.45 X1000 (1.2-3.4); LYMPH% 26.2 % (20.5-51.1); MCH 29.3 PG (27-31); MCHC 30.3 g/dL (33-37); MCV 96.7 FL (81-99); MONO# 0.42 X1000 (0.11-0.59); MONO% 7.6 % (1.7-9.3); MPV 8.7 FL (7.4-10.4); NEUT# 3.42 X1000 (1.4-6.5); NEUT% 61.6 % (42.2-75.2); PLT 199 X1000 (130-400); RBC 3.31 XMIL (4.7-6.1); RDW 13.7 % (11.5-14.5); WBC 5.54 X1000 (4.8-10.8)
[2019-06-22 06:37] LABS: AGAP 14; ALB/GLOB RATIO 0.9; ALBUMIN 2.7 g/dL (3.5-5.0); ALKALINE PHOSPHATASE 70 U/L (32-122); BUN 1 mg/dL (8-22); CALCIUM 8.2 mg/dL (8.8-10.2); CHLORIDE 105 mmol/L (98-107); COSMO 291; CREATININE 0.2 mg/dL (0.7-1.2); ESTIMATED GFR > 60; GLUCOSE 115 mg/dL (70-104); GOT 13 U/L (10-34); GPT 18 U/L (10-44); POTASSIUM 2.7 mmol/L (3.5-5.1); SODIUM 148 mmol/L (136-145); TCO2 29 mmol/L (25-35); TOTAL BILIRUBIN 0.28 mg/dL (0.20-1.00); TOTAL PROTEIN 5.7 g/dL (6.3-8.3)
[2019-06-22] MEDS: ZYPREXA PO SCH ×2 (09:22→20:41)
[2019-06-22] MEDS: ICAR-C PO SCH ×3 (09:23→17:45)
[2019-06-22] MEDS: VITAMIN D PO SCH (09:23)
[2019-06-22] MEDS: ZOCOR PO SCH (09:23)
[2019-06-22] MEDS: FLONASE NAS SCH (09:23)
[2019-06-22] MEDS: BACTROBAN OINTMENT TOP SCH ×2 (09:23→23:23)
[2019-06-22] MEDS: VISINE OPH DROPS OPH SCH ×2 (09:23→20:42)
[2019-06-22] MEDS ORDERED: POTASSIUM CHLORIDE 20% LIQUID PO ONE ×2 (10:01→14:00)
[2019-06-22] MEDS: MAG-OX PO SCH ×3 (14:47→20:41)
--- NOTE | 2019-06-22 14:58 | PROGRESS NOTE ---
DATE: 06/22/2019 SUBJECTIVE: Mr. Eckert is on the BiPAP at the present time, not eating as well, but still getting some food down. OBJECTIVE: He remains afebrile. Temperature 98.3 degrees, pulse 93, respirations 30, and blood pressure 124/83. Pupils are equal and round. Lungs are clear in all lung perry. Cardiovascular exam regular rhythm and rate without murmur or S3. Abdomen is soft. Skin is warm and dry. Urine output 8100 mL. Chest x-ray from yesterday with left upper lobe, and possibly lower lobe pneumonia. ASSESSMENT AND PLAN: 1. Continue to treat his pneumonia. He has scoliosis and a lot of atelectasis. Continue bronchodilators, supplemental oxygen, and placed on antibiotics slowly improving. 2. He has history of obstructive sleep apnea, and wears CPAP at night. 3. History of seizure disorder from cerebral palsy. He has cerebral palsy. uses a motorized wheelchair. 4. Asthma. 5. Depression. 6. Iron deficiency anemia. 7. Seasonal allergies. 8. Hyperlipidemia. 9. Chronic pain. cc: Gera Weaver MD MTDD
--- NOTE | 2019-06-22 20:06 | ECHO REPORT ---
ORDER DATE: 06/22/2019 INDICATION: A 33-year-old patient with CHF. REQUESTING PHYSICIAN: Dr. Cadena. SUMMARY OF 2-DIMENSIONAL IMAGIN. The study is very difficult. Parasternal views are very limited. 2. There is suboptimal visualization of the pulmonic and aortic valves. They seem to appear grossly within normal range. 3. The tricuspid valve is suboptimally visualized. I do not see any significant jet of tricuspid regurgitation. 4. I did not appreciate well the mitral valve. 5. Left ventricular function could not be fully evaluated here, nor the right ventricular function. 6. There is no pericardial effusion. 7. The inferior vena cava does not appear to be dilated. RECOMMENDATIONS: This patient warrants a cardiac MR or some other type of imaging technique if there is a real concern that cardiac pathology may be present. cc: MD Huy Loomis MD
[2019-06-22] MEDS: SINGULAIR PO SCH (20:40)
[2019-06-22] MEDS: ZYRTEC PO SCH (20:40)
[2019-06-22] MEDS: ZOLOFT PO SCH (20:41)
[2019-06-22] MEDS ORDERED: VANCOMYCIN 1,600 MG in NS 250 ML IV ONE (22:00)
[2019-06-23] MEDS: ATROVENT NEB INH SCH ×6 (03:23→22:40)
[2019-06-23] MEDS: XOPENEX NEB INH SCH ×6 (03:23→22:40)
[2019-06-23] MEDS: ZOSYN 3.375 GM in NS 50 ML IV SCH ×4 (03:55→20:54)
[2019-06-23 06:16] LABS: BASO# 0.02 X1000 (0.0-0.2); BASO% 0.3 % (0.0-0.8); EOS# 0.16 X1000 (0.0-0.7); EOS% 2.8 % (0.0-10.0); IMM GRAN# 0.08 X1000 (0.0-0.04); IMM GRAN% 1.4 % (0.0-0.5); LYMPH# 1.47 X1000 (1.2-3.4); LYMPH% 25.6 % (20.5-51.1); MCH 28.9 PG (27-31); MCHC 29.7 g/dL (33-37); MCV 97.1 FL (81-99); MONO# 0.59 X1000 (0.11-0.59); MONO% 10.3 % (1.7-9.3); MPV 8.9 FL (7.4-10.4); NEUT# 3.42 X1000 (1.4-6.5); NEUT% 59.6 % (42.2-75.2); PLT 225 X1000 (130-400); RBC 3.81 XMIL (4.7-6.1); RDW 13.9 % (11.5-14.5); WBC 5.74 X1000 (4.8-10.8)
[2019-06-23 07:11] LABS: AGAP 12; ALB/GLOB RATIO 0.7; ALBUMIN 2.6 g/dL (3.5-5.0); ALKALINE PHOSPHATASE 74 U/L (32-122); BUN 2 mg/dL (8-22); CHLORIDE 101 mmol/L (98-107); COSMO 288; CREATININE 0.3 mg/dL (0.7-1.2); ESTIMATED GFR > 60; GLUCOSE 118 mg/dL (70-104); GOT 16 U/L (10-34); GPT 20 U/L (10-44); POTASSIUM 2.8 mmol/L (3.5-5.1); SODIUM 146 mmol/L (136-145); TCO2 33 mmol/L (25-35); TOTAL BILIRUBIN 0.26 mg/dL (0.20-1.00); TOTAL PROTEIN 6.5 g/dL (6.3-8.3)
[2019-06-23] MEDS: ICAR-C PO SCH ×3 (08:46→17:10)
[2019-06-23] MEDS: MAG-OX PO SCH (08:46)
[2019-06-23] MEDS: ZYPREXA PO SCH ×2 (08:46→20:55)
[2019-06-23] MEDS: VISINE OPH DROPS OPH SCH ×2 (08:47→20:55)
[2019-06-23] MEDS: FLONASE NAS SCH (08:47)
[2019-06-23] MEDS: VITAMIN D PO SCH (08:47)
[2019-06-23] MEDS: BACTROBAN OINTMENT TOP SCH (08:47)
[2019-06-23] MEDS: ZOCOR PO SCH (08:47)
[2019-06-23] MEDS ORDERED: POTASSIUM CHLORIDE 20% LIQUID PO ONE ×2 (09:01→13:00)
--- NOTE | 2019-06-23 10:39 | PROGRESS NOTE ---
DATE: 06/23/2019 SUBJECTIVE: Mr. Eckert is breathing better. He reports he feels better. Still on nasal cannula. Uses the BiPAP as necessary. OBJECTIVE: Vital signs: Temperature 98 degrees, pulse 86, respirations 20, blood pressure 133/51. HEENT: Pupils are equal and round. Lungs: Clear in all lung perry. Cardiovascular: Regular rhythm and rate without murmur or S3. Abdomen: Soft. Skin: Warm and dry. ASSESSMENT AND PLAN: 1. Continue to treat his pneumonia, underlying scoliosis with a lot of atelectasis. Continue bronchodilators, supplemental O2. He is making progress on air and gas exchange. He will need to be off his oxygen before we let him go home. He has a history of obstructive sleep apnea and he wears CPAP at night. 2. History of seizure disorder secondary to cerebral palsy and he is to continue his current medication. He uses a motorized wheelchair. 3. Asthma. 4. Depression. 5. Iron deficiency anemia. 6. Seasonal allergies. 7. Hyperlipidemia. 8. Chronic pain syndrome. Continue current medications. LABORATORY DATA: Reviewed from today. Potassium is a little low, his magnesium is 1.5, so we will supplement some potassium. cc: Gera Weaver MD
[2019-06-23] MEDS: VANCOMYCIN 1,300 MG in NS 250 ML IV SCH ×2 (11:17→22:21)
[2019-06-23] MEDS: NS 1,000 ML IV SCH ×2 (13:44→14:08)
[2019-06-23] MEDS: ZYRTEC PO SCH (20:55)
[2019-06-23] MEDS: KLOR-CON PO SCH (20:55)
[2019-06-23] MEDS: SINGULAIR PO SCH (20:55)
[2019-06-23] MEDS: ZOLOFT PO SCH (20:55)
[2019-06-24] MEDS: NS 1,000 ML IV SCH ×4 (00:55→21:01)
[2019-06-24] MEDS: ZOSYN 3.375 GM in NS 50 ML IV SCH ×4 (02:06→21:00)
[2019-06-24] MEDS: BACTROBAN OINTMENT TOP SCH ×3 (02:06→21:01)
[2019-06-24] MEDS: ATROVENT NEB INH SCH ×6 (03:33→23:04)
[2019-06-24] MEDS: XOPENEX NEB INH SCH ×6 (03:34→23:04)
[2019-06-24 06:38] LABS: BASO# 0.02 X1000 (0.0-0.2); BASO% 0.3 % (0.0-0.8); EOS# 0.17 X1000 (0.0-0.7); EOS% 2.9 % (0.0-10.0); HEMATOCRIT 35.7 % (42.0-52.0); HEMOGLOBIN 10.6 g/dL (14.0-18.0); IMM GRAN# 0.08 X1000 (0.0-0.04); IMM GRAN% 1.4 % (0.0-0.5); LYMPH% 22.3 % (20.5-51.1); MCH 29.1 PG (27-31); MCHC 29.7 g/dL (33-37); MCV 98.1 FL (81-99); MONO# 0.48 X1000 (0.11-0.59); MONO% 8.2 % (1.7-9.3); MPV 8.9 FL (7.4-10.4); NEUT# 3.77 X1000 (1.4-6.5); NEUT% 64.9 % (42.2-75.2); PLT 300 X1000 (130-400); RBC 3.64 XMIL (4.7-6.1); RDW 14.1 % (11.5-14.5); WBC 5.82 X1000 (4.8-10.8)
[2019-06-24 07:09] LABS: AGAP 12; ALBUMIN 3.1 g/dL (3.5-5.0); ALKALINE PHOSPHATASE 73 U/L (32-122); BUN 2 mg/dL (8-22); CALCIUM 9.1 mg/dL (8.8-10.2); CHLORIDE 109 mmol/L (98-107); COSMO 299; CREATININE 0.4 mg/dL (0.7-1.2); ESTIMATED GFR > 60; GLUCOSE 120 mg/dL (70-104); GOT 17 U/L (10-34); GPT 17 U/L (10-44); POTASSIUM 3.4 mmol/L (3.5-5.1); SODIUM 152 mmol/L (136-145); TCO2 31 mmol/L (25-35); TOTAL BILIRUBIN 0.24 mg/dL (0.20-1.00); TOTAL PROTEIN 6.1 g/dL (6.3-8.3)
--- NOTE | 2019-06-24 07:36 | Diag Imaging Result Doc PS360 ---
EXAM: CHEST-1 VIEW - 06/24/2019 HISTORY: SOB TECHNIQUE: Portable chest one view COMPARISON: 06/21/2019 FINDINGS: Inspiration is mildly more shallow compared to prior. There is left perihilar infiltrate which appears to have decreased mildly. There are no other significant interval changes identified. IMPRESSION: Mild decrease in perihilar infiltrate on the left. Electronically signed by Jc Styles 06/24/2019 7:34 AM
[2019-06-24] MEDS: ICAR-C PO SCH ×3 (09:19→18:06)
[2019-06-24] MEDS: VITAMIN D PO SCH (09:19)
[2019-06-24] MEDS: ZOCOR PO SCH (09:19)
[2019-06-24] MEDS: ZYPREXA PO SCH ×2 (09:19→21:01)
[2019-06-24] MEDS: FLONASE NAS SCH (09:20)
[2019-06-24] MEDS: VISINE OPH DROPS OPH SCH ×2 (09:20→21:01)
[2019-06-24] MEDS: KLOR-CON PO SCH ×2 (09:20→21:01)
[2019-06-24] MEDS: VANCOMYCIN 1,300 MG in NS 250 ML IV SCH ×2 (10:24→23:15)
--- NOTE | 2019-06-24 16:01 | PROGRESS NOTE ---
DATE: 06/24/2019 Mr. Eckert is better. He is off his oxygen. They just stopped it this afternoon. He is eating well, breathing comfortably. OBJECTIVE: Vitals: He remains afebrile, temperature 98.5 degrees, pulse 80, respirations 30. Blood pressure 126/86. Eyes: Pupils are equal and round. Lungs: Clear. No distended neck veins. Abdomen: Soft, nondistended. Skin: Warm and dry. Urine output yesterday was over 8 L. Chest x-ray from this morning: Mild decrease in perihilar infiltrate on the left. ASSESSMENT AND PLAN: 1. Continue to treat his pneumonia. Has underlying scoliosis, had some atelectasis. Recently was in the hospital treated with influenza and secondary pneumonia. We have been able to wean him off his oxygen. If he stays off his oxygen and does not require significant BiPAP, he can possibly go home tomorrow. 2. History of seizure disorder secondary to cerebral palsy. Continue current medication. 3. Asthma. 4. Depression. 5. Iron deficiency anemia. 6. Seasonal allergies. 7. Hyperlipidemia. 8. Chronic pain syndrome. REVIEW OF ORDERS: I do not see any change at this point. LABORATORY DATA: Reviewed from today: White count 5820, hematocrit is 35, platelet count 300,000. Sodium 152, potassium 3.4, chloride 109, BUN 2, creatinine 0.4. cc: Gera Weaver MD
[2019-06-24] MEDS: ZYRTEC PO SCH (21:01)
[2019-06-24] MEDS: SINGULAIR PO SCH (21:02)
[2019-06-24] MEDS: ZOLOFT PO SCH (21:02)
[2019-06-25] MEDS: ZOSYN 3.375 GM in NS 50 ML IV SCH ×4 (02:25→22:06)
[2019-06-25] MEDS: ATROVENT NEB INH SCH ×6 (03:13→23:13)
[2019-06-25] MEDS: XOPENEX NEB INH SCH ×6 (03:13→23:13)
[2019-06-25] MEDS: NS 1,000 ML IV SCH (04:53)
[2019-06-25 07:10] LABS: BASO# 0.01 X1000 (0.0-0.2); BASO% 0.2 % (0.0-0.8); EOS# 0.11 X1000 (0.0-0.7); EOS% 1.9 % (0.0-10.0); HEMATOCRIT 34.3 % (42.0-52.0); HEMOGLOBIN 10.1 g/dL (14.0-18.0); IMM GRAN# 0.05 X1000 (0.0-0.04); IMM GRAN% 0.9 % (0.0-0.5); LYMPH# 1.36 X1000 (1.2-3.4); LYMPH% 23.2 % (20.5-51.1); MCH 28.9 PG (27-31); MCHC 29.4 g/dL (33-37); MONO# 0.61 X1000 (0.11-0.59); MONO% 10.4 % (1.7-9.3); MPV 8.9 FL (7.4-10.4); NEUT# 3.72 X1000 (1.4-6.5); NEUT% 63.4 % (42.2-75.2); PLT 377 X1000 (130-400); RDW 14.5 % (11.5-14.5); WBC 5.86 X1000 (4.8-10.8)
[2019-06-25 07:19] LABS: AGAP 4; ALB/GLOB RATIO 0.7; ALBUMIN 2.6 g/dL (3.5-5.0); ALKALINE PHOSPHATASE 75 U/L (32-122); BUN 3 mg/dL (8-22); CALCIUM 8.9 mg/dL (8.8-10.2); CHLORIDE 113 mmol/L (98-107); COSMO 301; CREATININE 0.6 mg/dL (0.7-1.2); ESTIMATED GFR > 60; GLUCOSE 123 mg/dL (70-104); GOT 22 U/L (10-34); GPT 15 U/L (10-44); POTASSIUM 3.7 mmol/L (3.5-5.1); SODIUM 153 mmol/L (136-145); TCO2 36 mmol/L (25-35); TOTAL BILIRUBIN 0.26 mg/dL (0.20-1.00); TOTAL PROTEIN 6.1 g/dL (6.3-8.3)
[2019-06-25] MEDS: ICAR-C PO SCH ×3 (09:21→17:08)
[2019-06-25] MEDS: ZOCOR PO SCH (09:21)
[2019-06-25] MEDS: VITAMIN D PO SCH (09:21)
[2019-06-25] MEDS: ZYPREXA PO SCH ×2 (09:21→22:10)
[2019-06-25] MEDS: KLOR-CON PO SCH ×2 (09:21→22:09)
[2019-06-25] MEDS: VISINE OPH DROPS OPH SCH ×2 (09:22→22:07)
[2019-06-25] MEDS: FLONASE NAS SCH (09:22)
[2019-06-25] MEDS: BACTROBAN OINTMENT TOP SCH ×2 (09:22→22:07)
[2019-06-25] MEDS: VANCOMYCIN 1 GM/NS 1 GM/250 ML IVPB IV SCH ×2 (10:37→22:41)
--- NOTE | 2019-06-25 18:20 | PROGRESS NOTE ---
DATE: 06/25/2019 SUBJECTIVE: Mr. Eckert is back on his nasal cannula. He is awake and alert, states he feels pretty good. He is eating well. Bowels are moving. OBJECTIVE: Vital signs: Temperature 98.5 degrees, pulse 89, respirations 20, blood pressure 147/110. HEENT: Pupils are equal and round. Lungs: Clear in all lung perry. Cardiovascular: Regular rhythm and rate without murmur or S3. Abdomen: Soft. Skin: Warm and dry. Urine output was 5400 mL. ASSESSMENT AND PLAN: 1. Continue to treat his pneumonia. He appears better. Would like to get him off his oxygen altogether. He does wear CPAP at night for obstructive sleep apnea, and we did get him off his oxygen and had to put him back on nasal cannula today and so continue to try and wean. He had been treated for influenza and secondary pneumonia in the hospital 2 weeks ago. He also has underlying scoliosis. 2. History of seizure disorder secondary to cerebral palsy. 3. History of asthma. 4. History of depression. 5. History of iron deficiency anemia. 6. Seasonal allergies. 7. Hyperlipidemia. 8. Chronic pain syndrome. On review of his orders, I do not see any significant change at this point. Continue to try and get him off nasal cannula. Hopefully, he is very close to going home. On his repeat chest x-ray, we did one on the 8th, mild decrease in perihilar infiltrate. I think we will check another one in the morning. cc: Gera Weaver MD
[2019-06-25] MEDS: ZOLOFT PO SCH (22:10)
[2019-06-25] MEDS: SINGULAIR PO SCH (22:10)
[2019-06-25] MEDS: ZYRTEC PO SCH (22:10)
[2019-06-26] MEDS: ATROVENT NEB INH SCH ×6 (03:25→23:59)
[2019-06-26] MEDS: XOPENEX NEB INH SCH ×6 (03:25→23:59)
[2019-06-26] MEDS: ZOSYN 3.375 GM in NS 50 ML IV SCH ×3 (03:31→13:13)
[2019-06-26] MEDS: VANCOMYCIN 1 GM/NS 1 GM/250 ML IVPB IV SCH ×2 (08:34→21:46)
[2019-06-26] MEDS: ZOCOR PO SCH (08:35)
[2019-06-26] MEDS: ZYPREXA PO SCH ×2 (08:35→20:38)
[2019-06-26] MEDS: KLOR-CON PO SCH ×2 (08:35→20:37)
[2019-06-26] MEDS: BACTROBAN OINTMENT TOP SCH ×2 (08:36→20:37)
[2019-06-26] MEDS: VISINE OPH DROPS OPH SCH ×2 (08:36→20:37)
[2019-06-26] MEDS: ICAR-C PO SCH ×3 (08:36→16:10)
[2019-06-26] MEDS: FLONASE NAS SCH (08:36)
[2019-06-26] MEDS: VITAMIN D PO SCH (08:36)
--- NOTE | 2019-06-26 09:17 | Diag Imaging Result Doc PS360 ---
EXAM: CHEST-PORTABLE 06/26/2019 HISTORY: pneumonia TECHNIQUE: AP portable semiupright at 0900 COMMENT: There is severe rotoscoliosis of the thoracolumbar spine with convexity to the right. There is elevation of the left hemidiaphragm. There is crowding of the vessels in the left hilar region. There is still some perihilar opacity in the left upper lobe and lower lobe. There has been improvement since 06/21/2018. Overall the appearance the chest has not changed significantly since 06/24/2019. IMPRESSION: Left bronchopneumonia slightly improved since 06/21/2019. Electronically signed by Devan Kelly 06/26/2019 9:14 AM
[2019-06-26] MEDS: D5 1/2 NS 1,000 ML IV SCH (16:09)
[2019-06-26] MEDS: MAXIPIME 1 GM in NS 50 ML IV SCH (16:09)
--- NOTE | 2019-06-26 18:37 | PROGRESS NOTE ---
DATE: 06/26/2019 SUBJECTIVE: Patient has no major complaints. OBJECTIVE: Vital Signs: Blood pressure 121/85, heart rate 98, respiratory rate 21, temperature 98.1 degrees. Cardiovascular: Regular rate and rhythm. Pulmonary: Bilateral breath sounds, diminished at the bases. Gastrointestinal: Soft, nontender, nondistended. Bowel sounds are positive. LABORATORY DATA: His sodium is slowly climbing up to 153 which I am not clear if this is from hemo concentration or not. He is not on any diuretics. He is on vancomycin. He is on Zosyn so I think we will probably stop that, may given too much of a salt load. ASSESSMENT AND PLAN: 1. Pneumonia. We will continue treatment and follow. He is on CPAP. We will evaluate for oxygen need. He is down to 1 L and doing okay. 2. Seizure disorder. He is on his regular medications. 3. Asthma. He is on his regular medications. 4. Depression. He is on his regular medications. 5. Hyponatremia. May be related to Zosyn which I guess we are using to treat pneumonia. I am just going to switch him to cefepime and we will see how he does. DISPOSITION: Pending clinical status but if he is off oxygen, I anticipate discharge tomorrow. cc: Morgan Watkins MD
[2019-06-26] MEDS: ZOLOFT PO SCH (20:38)
[2019-06-26] MEDS: SINGULAIR PO SCH (20:38)
[2019-06-26] MEDS: ZYRTEC PO SCH (20:38)
[2019-06-27] MEDS: MAXIPIME 1 GM in NS 50 ML IV SCH ×2 (03:21→14:34)
[2019-06-27] MEDS: XOPENEX NEB INH SCH ×6 (03:30→23:35)
[2019-06-27] MEDS: ATROVENT NEB INH SCH ×6 (03:30→23:36)
[2019-06-27] MEDS: D5 1/2 NS 1,000 ML IV SCH (04:38)
[2019-06-27] MEDS: FLONASE NAS SCH (09:38)
[2019-06-27] MEDS: BACTROBAN OINTMENT TOP SCH ×2 (09:38→20:33)
[2019-06-27] MEDS: KLOR-CON PO SCH ×2 (09:38→20:33)
[2019-06-27] MEDS: ICAR-C PO SCH ×3 (09:39→16:04)
[2019-06-27] MEDS: VISINE OPH DROPS OPH SCH ×2 (09:39→20:34)
[2019-06-27] MEDS: VITAMIN D PO SCH (09:39)
[2019-06-27] MEDS: ZOCOR PO SCH (09:39)
[2019-06-27] MEDS: ZYPREXA PO SCH ×2 (09:39→20:33)
[2019-06-27] MEDS: VANCOMYCIN 1 GM/NS 1 GM/250 ML IVPB IV SCH (10:11)
[2019-06-27] MEDS ORDERED: D5W 1,000 ML IV SCH (10:30)
[2019-06-27] MEDS: D5W 1,000 ML IV SCH ×2 (14:29→23:54)
--- NOTE | 2019-06-27 15:07 | PROGRESS NOTE ---
DATE: 06/27/2019 SUBJECTIVE: Patient has no major complaints. OBJECTIVE: Vital Signs: Blood pressure is 112, 132/87, heart rate 112, respiratory rate 34, temperature 98.4 degrees, 98% on 1 L. Cardiovascular: Regular rate and rhythm. Pulmonary: Bilateral breath sounds. Clear to auscultation. Gastrointestinal: Abdomen soft, nontender, nondistended. Bowel sounds are positive. LABORATORY DATA: White count is 5, hemoglobin and hematocrit 10 and 34, platelets 377,000. Sodium is up to 153. PROBLEM LIST: 1. Hypernatremia. I am not sure if this is related to antibiotics. We will continue treatment. He is now just on plain dextrose and hopefully we will get that fixed. 2. Pneumonia. He is on cefepime. Anticipate probably discharge on Omnicef and doxycycline. 3. Acute on chronic respiratory failure. Seems to have stabilized. DISPOSITION: Pending his clinical status. cc: Morgan Watkins MD
[2019-06-27] MEDS ORDERED: LOPRESSOR IV ONE (17:43)
[2019-06-27] MEDS: ZOLOFT PO SCH (20:33)
[2019-06-27] MEDS: SINGULAIR PO SCH (20:33)
[2019-06-27] MEDS: ZYRTEC PO SCH (20:33)
[2019-06-27] MEDS: LOPRESSOR PO SCH (20:36)
[2019-06-28] MEDS: MAXIPIME 1 GM in NS 50 ML IV SCH (03:08)
[2019-06-28] MEDS: LOPRESSOR PO SCH ×3 (03:09→13:10)
[2019-06-28] MEDS: ATROVENT NEB INH SCH ×3 (03:32→11:44)
[2019-06-28] MEDS: XOPENEX NEB INH SCH ×3 (03:32→11:44)
[2019-06-28 06:10] LABS: AGAP 11; BUN 6 mg/dL (8-22); CALCIUM 9.4 mg/dL (8.8-10.2); CHLORIDE 104 mmol/L (98-107); COSMO 283; CREATININE 0.8 mg/dL (0.7-1.2); ESTIMATED GFR > 60; GLUCOSE 146 mg/dL (70-104); POTASSIUM 4.4 mmol/L (3.5-5.1); SODIUM 142 mmol/L (136-145); TCO2 27 mmol/L (25-35)
[2019-06-28] MEDS: ZOCOR PO SCH (08:58)
[2019-06-28] MEDS: VITAMIN D PO SCH (08:59)
[2019-06-28] MEDS: BACTROBAN OINTMENT TOP SCH (08:59)
[2019-06-28] MEDS: FLONASE NAS SCH (08:59)
[2019-06-28] MEDS: ICAR-C PO SCH ×2 (08:59→13:10)
[2019-06-28] MEDS: VISINE OPH DROPS OPH SCH (08:59)
[2019-06-28] MEDS: KLOR-CON PO SCH (08:59)
[2019-06-28] MEDS: ZYPREXA PO SCH (09:00)
[2019-06-28] MEDS: D5W 1,000 ML IV SCH (09:49)
--- NOTE | 2019-06-28 11:00 | Diag Imaging Result Doc PS360 ---
EXAM: CT THORAX W/O CONTRAST INDICATION: SOB TECHNIQUE: This exam was performed using automated exposure control, adjustment of mA or kV according to patient size, and/or use of iterative reconstruction technique. COMPARISON: CTA chest dated 06/18/2019 FINDINGS: Very severe scoliosis is again noted. Airspace consolidations in the right lower lobe, left lower lobe, and left upper lobe are again identified. However, they have improved during the interval. As was seen on the previous study, the consolidations on the left are somewhat nodular but have decreased in size. There is also a component of atelectasis related to the severe scoliosis that is stable. No new consolidation is identified. There is no significant pleural fluid collection and no pneumothorax. There is no cardiomegaly. No significant mediastinal or hilar lymphadenopathy is appreciated. Limited views of the upper abdomen are essentially unremarkable. IMPRESSION: Interval improvement of bilateral multilobar pneumonia as described above. Electronically signed by Alexis Carnes 06/28/2019 10:58 AM
[2019-06-28 12:14] VITALS: BP 108/76
--- NOTE | 2019-06-29 15:51 | DISCHARGE SUMMARY ---
ADMISSION DATE: 06/18/2019 DISCHARGE DATE: 06/28/2019 DIAGNOSES: 1. Diagnosis is bibasilar pneumonia with respiratory insufficiency. 2. History of seizure disorder secondary to cerebral palsy. 3. Obstructive sleep apnea. The patient wear CPAP at night. 4. Asthma. 5. Seasonal allergies. 6. Depression. 7. Cerebral palsy. 8. Chronic pain syndrome. 9. History of iron deficiency anemia. CONSULTANTS: Dr. Cadena. DIAGNOSTICS: 1. 06/18/2019 chest x-ray revealed interval development of rounded opacity in the left lung suggesting pneumonia. 2. 06/18/2019 pulmonary arteriogram, bilateral infiltrates consistent with pneumonia. 3. 06/21/2019 chest x-ray, left upper and possible left lower lobe pneumonia. 4. Echocardiogram. 5. 06/24/2019 chest x-ray, mild decrease in perihilar infiltrate on the left. 6. 06/26/2019 chest x-ray, left bronchopneumonia, improved since 06/21/2019. 7. CT of the chest interval improvement of bilateral multilobar pneumonia. 8. Microbiology sputum culture revealed E coli and MSSA. 9. Blood culture revealed methicillin susceptible Staphylococcus aureus. HOSPITAL COURSE: Mr. Eckert presented to the emergency room with shortness of breath. He was found to have bibasilar pneumonia with hypoxemia. He was started on antibiotic coverage of vancomycin and Zosyn which continued throughout the hospitalization and he will be discharged on doxycycline and cefdinir. His room air saturations were 94%. He did not qualify for home O2. Mr. Eckert has obstructive sleep apnea. He does use CPAP at home. During the hospitalization he did use BiPAP during the night and was converted to nasal cannula through the day, which he did tolerate well. We continued his home medications throughout the hospitalization. We trended electrolytes and repleted or treated as appropriate. He does have a seizure disorder due to his cerebral palsy. He had no seizures while in the hospital. Mr. Eckert is nonambulatory. He does use an electric wheelchair at home. DISCHARGE VITAL SIGNS: Blood pressure is 108/76 with heart rate of 71, respirations are 20, temperature is 98.6 degrees oral, with O2 saturations that were 94 to 96% on room air 96 to 100% on 2 L nasal cannula. DISCHARGE MEDICATIONS: 1. Singulair 10 mg p.o. at bedtime. 2. Zoloft 50 mg p.o. at bedtime. 3. Zyrtec 10 mg p.o. at bedtime. 4. Icar C 1 tab p.o. t.i.d. 5. Flonase 1 spray intranasally daily. 6. Pulmicort 1 puff b.i.d. 7. Simvastatin 20 mg p.o. daily. 8. Tramadol 50 mg q.6 hours p.r.n. 9. Visine A allergy drops both eyes b.i.d. 10. Vitamin D3 1 tablet daily. 11. Zyprexa 2.5 p.o. b.i.d. 12. Cefdinir 300 mg p.o. b.i.d. for 10 days. 13. Doxycycline 100 mg p.o. b.i.d. for 10 days FOLLOWUP: 1. Dr. Cadena needs to call to schedule an appointment in the next 1 [address] Tim they need to call to schedule an appointment in the next 1 to 2 weeks. 3. They have been instructed to return to the ER for any chest pain, palpitations, any dizziness, temperature greater than 101, any increasing shortness of breath, hemoptysis, any nausea, vomiting, diarrhea, constipation, black or bloody vomitus or stools or any questions or concerns that they may have. DISPOSITION: He is being discharged in stable condition with family members. TIME SPENT: This is a greater than 30 minute discharge. Dictated by LORI Sheets for Mumtaz Wills MD Addendum: Patient seen and examined by myself. Agree with LORI note. It reflects my assessment and plan. Patient is being discharged in stable condition to home. Follow up with PCP in a week. cc: LORI Sheets MD [facility]
== END 2019-06-28 13:30 | disposition home or self-care (01) | DRG 193 ==
LOC: SUPCPDRO → ED 14:27 → EDIPHOLD 17:29 → SUATTDRO 17:29 → ICU 20:26 → 2N 06-19 23:39
PROVIDERS: ATTEND Internal Medicine